=== PATIENT | female | born 1955 | race Caucasian/White ===

== ENCOUNTER → 2017-11-06 07:32 | Outpatient (CLI) | payer OTHER, SELFPAY ==
--- NOTE | 2017-11-06 06:58 | HPBI_ITS ---
MAMMOGRAPHY - BILATERAL SCREENING REASON FOR EXAM: Female, 61 years old. Routine annual screening examination. PERTINENT HISTORY: Non-contributory. TECHNIQUE: Digital bilateral breast jonathan (3D mammographic acquisition) in the CC and MLO projections. 2-D mediolateral oblique (MLO) and craniocaudad (CC) views of both breasts were obtained. CAD: Full Field Digital Mammography with Computer Added Detection was performed. COMPARISON: Comparison is made with prior study dated June 05, 2016 and April 24, 2015. FINDINGS: Breast Composition: The breasts are heterogeneously dense, which may obscure small masses. There are no dominant masses or suspicious calcifications. Once again, a tissue clip marker is seen in the upper slightly lateral aspect of the left breast. This is within the 1.2 cm x 1.1 cm nodular density. This is unchanged. Stable bilateral benign-appearing axillary lymph nodes. No other significant abnormalities are identified. There has been no significant change since the prior study. HPBI/SCREENING MAMM (CAD), BILAT IMPRESSION: Stable bilateral screening mammogram. Yearly follow-up mammogram recommended. (A) ASSESSMENT CATEGORY: BIRADS Category 2: Benign. A letter regarding these results will be sent to the patient by the facility within 30 days. Approximately 10% of breast cancers are not detected by mammography. A normal mammogram should not delay biopsy of a clinically suspicious abnormality. [id number] Electronically Signed: Donte Mott MD at 8:15 EST Tel [phone], Service support ,
== END ==
PROVIDERS: Family Provider Family Medicine; PCP Family Medicine; Visit Provider Family Medicine
DX: Z12.31 Encounter for screening mammogram for malignant neoplasm of breast (principal)
CPT/HCPCS: 77063; 77067

== ENCOUNTER → 2018-10-07 10:00 | Outpatient (CLI) | payer OTHER, SELFPAY ==
[2018-10-07 12:39] LABS: Absolute Lymphocyte Count 2.47 X10^3/ul (0.83-4.51); Absolute Neutrophil Count 2.5 X10^3/uL (2.0-7.7); Basophil# 0.03 X10^3/uL; Basophil% 0.5 % (0-1); Eosinophil# 0.22 X10^3/uL; Eosinophils% 3.9 % (0-5); Hematocrit 42.2 % (37-47); Hemoglobin 13.9 g/dl (12.0-15.0); Lymphocyte # 2.47 X10^3/ul (4.0); Lymphocyte % 43.8 % (19-41); Mean Corp Hgb Conc 32.9 g/gl (32-36); Mean Corpuscular Hgb 29.5 pg (27.0-32.0); Mean Corpuscular Volume 89.6 fL (81-99); Mean Platelet Vol. 10.8 fl (6.2-12.0); Monocyte% 7.1 % (0-10); Neutrophil % 44.3 % (47-70); Platelet Count 245 K/mm3 (150-450); RBC Distribution Width CV 12.7 % (11.6-14.6); RBC Distribution Width SD 40.9 fl (35.1-43.9); Red Blood Count 4.71 M/mm3 (4.2-5.4); White Blood Count 5.6 K/mm3 (4.4-11.0)
[2018-10-07 12:42] LABS: POSITIVE COUNT NO; POSITIVE DIFFERENTIAL NO; POSITIVE MORPHOLOGY NO
[2018-10-07 12:48] LABS: ALB/GLOB Ratio 0.9 RATIO (0.9-2.4); AST(SGOT) 13 U/L (15-37); Alanine Aminotransfer ALT/SGPT 29 U/L (13-56); Albumin, Serum 3.7 g/dL (3.2-5.0); Alkaline Phosphatase 103 U/L (45-117); Anion Gap 9 (5-15); BUN 28 mg/dL (7-18); BUN/Creat Ratio 28.6 RATIO (10-20); Calcium,Total 9.2 mg/dL (8.5-10.1); Chloride 105 mmol/L (98-107); Creatinine, Serum 0.98 mg/dL (0.55-1.02); EST Glomerular Filtration Rate 61 mL/min (>60); Est Glom Filt Rate - Afr Amer 73 mL/min (>60); Globulin 3.9 g/dL (2.2-4.2); Glucose 204 mg/dL (74-106); Protein, Total 7.6 g/dL (6.4-8.2); Sodium Level 140 mmol/L (136-145); T4 Free Direct 1.03 ng/dL (0.76-1.46)
--- OUTSIDE RECORDS SUMMARY | 2018-12-09 06:33 | XMS RPT_ITS ---
:1955 Author Organization [facility] Care Team Providers Name Role Phone James Rodriguez Attending Unavailable James Rodriguez Primary Care Unavailable Nurse, Surgery Attending Unavailable James Rodriguez Referring Unavailable James Rodriguez Attending Unavailable James Rodriguez Primary Care Unavailable PROBLEMS PROBLEMS No Problem Records FoundPROCEDURES PROCEDURES No Procedure Records FoundRESULTS RESULTS CBC W/DIFF, AUTOMATED Collected: 10/07/2018 Status: F Source: VIRI 10:02 AM [facility] REPOSITORY TYPE CODE TESTS RESULT OUT OF RANGE REFERENCE UNITS LAB L100.1000 4.4-11.0 K/mm3 Normal WBC 5.6 LAB L100.1200 4.2-5.4 M/mm3 Normal RBC 4.71 LAB L100.1300 12.0-15.0 g/dl Normal HGB 13.9 LAB L100.1400 37-47 % Normal HCT 42.2 LAB L100.1500 81-99 fL Normal MCV 89.6 LAB L100.1600 27.0-32.0 pg Normal MCH 29.5 LAB L100.1700 32-36 g/gl Normal MCHC 32.9 LAB L100.1810 11.6-14.6 % Normal RDW CV 12.7 LAB L100.1820 35.1-43.9 fl Normal RDW SD 40.9 LAB L100.1900 150-450 K/mm3 Normal PLT 245 LAB L100.2000 6.2-12.0 fl Normal MPV 10.8 LAB L100.2100 47-70 % Low NEUT% 44.3 LAB L100.2200 19-41 % High LY% 43.8 LAB L100.2300 0-10 % Normal MONO% 7.1 LAB L100.2400 0-5 % Normal EO% 3.9 LAB L100.2500 0-1 % Normal BASO% 0.5 LAB L100.2550 0.0-0.9 % Normal IM GRAN % 0.400 Result Comment: IG% - Immature Granulocytes (promyelocytes, myelocytes and metamyelocytes) > 1% indicates that a LEFT SHIFT is Present. LAB L100.2620 2.0-7.7 X10 3/uL Normal Absolute Neut 2.5 LAB L100.2720 0.83-4.51 X10 3/ul Normal Absolute Lymph 2.47 Performed By: #### L100.0100 #### [facility] [address] [place], [place], [address] COMPREHENSIVE METABOLIC Collected: 10/07/2018 Status: F Source: [facility] 10:02 AM [facility] REPOSITORY TYPE CODE TESTS RESULT OUT OF RANGE REFERENCE UNITS LAB L501.0100 74-106 mg/dL High GLU 204 Result Comment: Glucose result greater than or equal to 200 mg/dL suggests DIABETES MELLITUS per A.D.A. criteria. Please note revised GLUCOSE reference range effective 2017. LAB L501.1000 7-18 mg/dL High BUN 28 LAB L501.1100 0.55-1.02 mg/dL Normal CREAT,SERUM 0.98 Result Comment: The validity of the calculated GFR AND GFRAA in patients over 70 years has not been determined. Clinical correlation is essential. LAB L501.1110 >60 mL/min Normal EST GFR 61 Result Comment: Non- GFR Calc LAB L501.1115 >60 mL/min Normal EST GFR - AA 73 Result Comment: GFR Calc LAB L501.1300 10-20 RATIO High BUN/CRE 28.6 LAB L501.1500 6.4-8.2 g/dL T Normal PROT 7.6 LAB L501.1800 3.2-5.0 g/dL Normal ALB 3.7 LAB L501.1950 2.2-4.2 g/dL Normal GLOB 3.9 LAB L501.2000 0.9-2.4 RATIO Normal A/G 0.9 LAB L501.2200 8.5-10.1 mg/dL CA Normal 9.2 LAB L501.4100 15-37 U/L Low AST 13 LAB L501.4305 45-117 U/L Normal ALK P 103 LAB L501.4405 13-56 U/L Normal ALT 29 LAB L501.4600 0.20-1.00 mg/dL T Normal BILI 0.80 LAB L501.5300 136-145 mmol/L NA Normal 140 LAB L501.5600 3.5-5.1 mmol/L K Normal 4.0 LAB L501.5900 98-107 mmol/L CL Normal 105 LAB L501.6100 21.0-32.0 mmol/L Normal CO2 26.0 LAB L501.6200 5-15 Normal GAP 9 Performed By: #### L500.4050, L501.9520, L506.0400 #### [facility] [address], [place], [id number] THYROID STIM HORMONE Collected: 10/07/2018 Status: F Source: VIRI (TSH) 10:02 AM [facility] REPOSITORY TYPE CODE TESTS RESULT OUT OF RANGE REFERENCE UNITS LAB L501.9520 0.358-3.74 uIU/mL Normal TSH 1.40 Performed By: #### L500.4050, L501.9520, L506.0400 #### [facility] [address] [place], [place], [id number] T4 FREE DIRECT Collected: 10/07/2018 Status: F Source: VIRI 10:02 AM [facility] REPOSITORY TYPE CODE TESTS RESULT OUT OF RANGE REFERENCE UNITS LAB L506.0400 0.76-1.46 ng/dL Normal T4 FREE 1.03 DIRECT Performed By: #### L500.4050, L501.9520, L506.0400 #### [facility] [address] [place], [address] SCREENING MAMM (CAD), Observed: 11/06/2017 Status: F Source: VIRI BILAT 6:58 AM [facility] REPOSITORY [facility] Imaging Services [address] [place] [address] SCREENING MAMM (CAD), BILAT MR#: [id number] Acct: [id number] Name: ALIYA ELLIS Rep #: [id number] : 1955 F 61 From: Donte Mott MD PCP: James Rodriguez Status: REG CLI Study: SCREENING MAMM (CAD), BILAT Date of Exam: 11/06/17 Exam# [id number] Ordering Dr: James Rodriguez MD MAMMOGRAPHY - BILATERAL SCREENING REASON FOR EXAM: Female, 61 years old. Routine annual screening examination. PERTINENT HISTORY: Non-contributory. TECHNIQUE: Digital bilateral breast jonathan (3D mammographic acquisition) in the CC and MLO projections. 2-D mediolateral oblique (MLO) and craniocaudad (CC) views of both breasts were obtained. CAD: Full Field Digital Mammography with Computer Added Detection was performed. COMPARISON: Comparison is made with prior study dated June 05, 2016 and April 24, 2015. FINDINGS: Breast Composition: The breasts are heterogeneously dense, which may obscure small masses. There are no dominant masses or suspicious calcifications. Once again, a tissue clip marker is seen in the upper slightly lateral aspect of the left breast. This is within the 1.2 cm x 1.1 cm nodular density. This is unchanged. Stable bilateral benign-appearing axillary lymph nodes. No other significant abnormalities are identified. There has been no significant change since the prior study. HPBI/SCREENING MAMM (CAD), BILAT IMPRESSION: Stable bilateral screening mammogram. Yearly follow-up mammogram recommended. (A) ASSESSMENT CATEGORY: BIRADS Category 2: Benign. A letter regarding these results will be sent to the patient by the facility within 30 days. Approximately 10% of breast cancers are not detected by mammography. A normal mammogram should not delay biopsy of a clinically suspicious abnormality. [id number] Electronically Signed: Donte Mott MD at 8:15 EST Tel [phone], Service support , CC: James Rodriguez Turning Machine Set Up Operator: Signed ALLERGIES ALLERGIES No Allergies Records FoundENCOUNTERS ENCOUNTERS ADMIT/DISCHARGE ACCOUNT ADMITTING ENCOUNTER LOCATION SOURCE NUMBER CLASS 10/12/2018/ [id number] Ambulatory BMSBuilding:B [place] [facility] 0 [facility] Repository 10/07/2018 [id number] Ambulatory [place] [facility] ing:BFHLAB Repository 11/06/2017 [id number] [facility] [place] [facility] ing:BI Repository PAYERS PAYERS ENCOUNTER GUARANTOR PAYER SUBSCRIBER SOURCE 10/12/2018 DANAY [id number] Primary ALIYA [address] Insurance:MEDICAL FRANKSDOB: [facility] [id number] Hospital [address]Jeq: (330) Number: Repository [phone] () [id number] Date:[id number] [address] [place] [id number]: 10/12/2018 Secondary NOT GIVENUNK [place] Insurance:SELF PAY [facility] ([place], [place]) Number: Effective Repository Date:2018-10-12 10/07/2018 DANAY YANCEYS8628 Primary ALIYA [address] Insurance:MEDICAL FRANKSDOB: [facility] [id number] [address]Ocw: [phone]) Number: Repository [phone] () [id number] Date:[id number] [address] [place] [id number]: 10/07/2018 Secondary NOT GIVENUNK [place] Insurance:SELF PAY [facility] ([place], [place]) Number: Effective Repository Date:2018-10-07 11/06/2017 Danay Yanceys8628 Primary ALIYA [address] Insurance:MEDICAL FRANKWVOB: [facility] [id number] Hospital [address]Vym: (330) Number: Repository [phone] () [id number] Date:[id number], [place] [address]RI: 11/06/2017 Secondary NOT GIVENUNK [place] Insurance:SELF PAY [facility] ([place], [place]) Number: Effective Repository Date:2017-10-14
== END ==
PROVIDERS: Family Provider Family Medicine; PCP Family Medicine; Visit Provider Family Medicine
DX: I10 Essential (primary) hypertension (principal); E78.5 Hyperlipidemia, unspecified; E11.9 Type 2 diabetes mellitus without complications
CPT/HCPCS: 36415; 80053; 84439; 84443; 85025

== ENCOUNTER 2018-11-05 05:49 | Day surgery (SDC) | payer OTHER, SELFPAY ==
[2018-11-05 06:16] VITALS: BP 127/89; PULSE 100; RESP 16; TEMP 36.6; O2SAT 100; BMI 27.0
--- NOTE | 2018-11-05 06:50 | PCM.HP.STD ---
Problem List (1) Screen for colon cancer Status: Acute History of Present Illness Date of Admission: 11/05/18 The patient is a 62 year old F who presents for screening colonoscopy. She has occasional constipation she has not noticed any blood she is not complaining of any abdominal pain. Past Medical History Past Medical History (Chronic Problems): Chronic Problems HTN (hypertension) (Chronic) HLD (hyperlipidemia) (Chronic) Type II diabetes mellitus (Chronic) Allergies No Known Allergies Allergy (Verified 11/03/18 10:42) Home Medications: Ambulatory Orders Medication Instructions Recorded Allopurinol 100 mg PO QODAY 11/03/18 Aspirin E.C. [Ecotrin] 81 mg PO DAILY@0800 11/03/18 Glimepiride [Amaryl] 4 mg PO BID 11/03/18 Losartan/Hydrochlorothiazide 1 each PO DAILY 11/03/18 [Losartan-Hctz 100-25 mg Tab] Multivitamin [Multiple Vitamins] 1 each PO DAILY 11/03/18 Potassium Chloride [K-Dur] 10 meq PO BID 11/03/18 Simvastatin [Zocor] 20 mg PO DAILY 11/03/18 Surgical History: - - Lithotripsy, she has had her tubes tied Smoking Status: Never smoker Tobacco Use: Non-smoker - *Family History Maternal History Items: No pertinent history Review of Systems Constitutional: Denies: Chills, Fever, Weight Change Cardiovascular: Denies: Chest Pain, Chest Pressure, Chest Tightness, Palpitations Respiratory: Denies: Cough, Hemoptysis, Shortness of breath at rest, Shortness of breath upon exertion, Wheezing Gastrointestinal: Denies: Abdominal Pain, Constipation, Diarrhea, Hematemesis, Nausea, Melena, Vomiting VTE Information - Inpt Only VTE Present on Admission: No VTE Mechan Device Prophylaxis: None VTE Pharm Prophylaxis ordered?: No Reason prophylaxis not ordered:: Treatment Not Indicated Patient Problems: Active and Suspected Problems Screen for colon cancer (Acute) - Physical Exam General: Alert, Oriented x3 Neck: Supple, No JVD Lungs: Clear to auscultation Cardiovascular: Regular rate, Regular Rhythm, No murmurs Abdomen: Bowel Sounds Present, Soft, Non Tender, Non-Distended Vital Signs Temp Pulse Resp BP Pulse Ox 97.8 F 100 16 127/89 H 100 11/05/18 06:16 11/05/18 06:16 11/05/18 06:16 11/05/18 06:16 11/05/18 06:16 Oxygen Delivery Method Room Air Weight: 162 lb 7.691 oz Body Mass Index (BMI) 27.0 Assessment/Plan All Active Problems Screen for colon cancer (Acute) Plan is to perform a colonoscopy. Risk and benefits were reviewed with the patient. These were include bleeding possible injury to the colon which could require subsequent surgeries to repair. She agrees to proceed.
[2018-11-05 07:06] LABS: Bedside Glucose 231 mg/dL (70-110)
--- NOTE | 2018-11-05 07:06 | OP.ENDO_ITS ---
11/05/2018 James Rodriguez Re : Colonoscopy procedure for Macarena Nunez Dear Jennifer This procedure was performed on October. My impressions and recommendations are as follows: Impressions : - The procedure was aborted due to inadequate bowel prep. - Stool in the entire examined colon. - No specimens collected. Recommendations : - Discharge patient to home. - Resume previous diet. - Continue present medications. - Repeat colonoscopy at appointment to be scheduled because the bowel preparation was poor. - Return to my office in 1 week. My findings are described in the full procedure note, which is enclosed. If I can be of further assistance, please feel free to contact me at Doctor phone number(s): , Fax: [phone], Work: . Sincerely, MD Papi Mathews MD 11/05/2018 7:05:09 AM This report has been signed electronically.
[2018-11-05 07:10] VITALS: BP 127/89; BP 97/61; PULSE 73; RESP 16; TEMP 36.4; O2SAT 97
[2018-11-05 07:15] VITALS: BP 101/63; BP 110/68; BP 127/89; PULSE 69; PULSE 72; RESP 16; O2SAT 97; O2SAT 98
[2018-11-05 07:25] VITALS: BP 113/70; BP 127/89; PULSE 74; RESP 16; TEMP 36.4; O2SAT 97
[2018-11-05 07:59] VITALS: BP 127/89
== END 2018-11-05 08:00 | disposition home or self-care (01) ==
LOC: EN 05:50 → AC 05:52
PROVIDERS: Family Provider Family Medicine; PCP Family Medicine; Referring Provider Surgery; Visit Provider Surgery
PROC: 0DJD8ZZ Inspection of Lower Intestinal Tract, Via Natural or Artificial Opening Endoscopic (ICD-10-PCS; CPT 45378; principal; 2018-11-05 06:55)
DX: Z12.11 Encounter for screening for malignant neoplasm of colon (principal); I10 Essential (primary) hypertension; E78.5 Hyperlipidemia, unspecified; E11.9 Type 2 diabetes mellitus without complications; Z79.84 Long term (current) use of oral hypoglycemic drugs; Z79.82 Long term (current) use of aspirin; Z79.899 Other long term (current) drug therapy; Z87.442 Personal history of urinary calculi
CPT/HCPCS: 45378; 82962; J7120

== ENCOUNTER 2018-12-30 05:51 | Day surgery (SDC) | payer OTHER, SELFPAY ==
[2018-12-01 07:27] VITALS: BMI 27.0
[2018-12-30] VITALS (9 sets, daily range): BP systolic 92–137; BP diastolic 61–82; PULSE 71–88; RESP 16–18; TEMP 36.4–36.8; O2SAT 92–100; BMI 27.6
--- NOTE | 2018-12-30 06:21 | SUR.PREOP ---
PT. PRESENTS FOR COLONOSCOPY. SHE STATES HER STOOLS ARE NOT COMPLETELY LIQUID AND THEY ARE BROWN IN COLOR. SHE DID NOT FINISH 32OZ OF PREP THAT SHE WAS TO DRINK. RN PAGED DR. CHING AND NOTIFIED HIM OF THIS. NEW ORDER RECEIVED FOR MG. [facility] AND PT. WILL BE MOVED DOWN ON SCHEDULE THIS MORNING. PT. AGREEABLE TO THIS.
[2018-12-30] MEDS: Magnesium Citrate 300 ML PO (06:30)
[2018-12-30 10:00] LABS: Bedside Glucose 130 mg/dL (70-110)
[2018-12-30] MEDS: Fleet Enema 1 ML RECTAL ×2 (10:28)
--- NOTE | 2018-12-30 11:33 | OP.ENDO_ITS ---
12/30/2018 James Rodriguez Re : Colonoscopy procedure for Macarena Nunez Dear Jennifer This procedure was performed on Sunday, December 30, 2018. My impressions and recommendations are as follows: Impressions : - Non-bleeding internal hemorrhoids. No specimens collected. - The examination was otherwise normal. Recommendations : - Discharge patient to home. - Resume previous diet. - Continue present medications. - Repeat colonoscopy in 10 years for screening purposes. - Return to primary care physician at appointment to be scheduled. My findings are described in the full procedure note, which is enclosed. If I can be of further assistance, please feel free to contact me at Doctor phone number(s): , Fax: [phone], Work: . Sincerely, MD Papi Mathews MD 12/30/2018 11:32:39 AM This report has been signed electronically.
== END 2018-12-30 13:04 | disposition home or self-care (01) ==
LOC: EN 05:51 → AC 05:52
PROVIDERS: Family Provider Family Medicine; PCP Family Medicine; Referring Provider Family Medicine; Visit Provider Surgery
PROC: 0DJD8ZZ Inspection of Lower Intestinal Tract, Via Natural or Artificial Opening Endoscopic (ICD-10-PCS; CPT 45378; principal; 2018-12-30 06:55)
DX: Z12.11 Encounter for screening for malignant neoplasm of colon (principal); K64.8 Other hemorrhoids; I10 Essential (primary) hypertension; E78.5 Hyperlipidemia, unspecified; E11.9 Type 2 diabetes mellitus without complications; Z87.442 Personal history of urinary calculi; Z79.84 Long term (current) use of oral hypoglycemic drugs; Z79.82 Long term (current) use of aspirin; Z79.899 Other long term (current) drug therapy
CPT/HCPCS: 45378; 82962; J7120; J1610

== ENCOUNTER → 2019-02-03 | Outpatient (CLI) | payer OTHER, SELFPAY ==
[2018-12-30 06:32] VITALS: BMI 27.6
--- NOTE | 2019-02-03 06:58 | BI_ITS ---
MAMMOGRAPHY - BILATERAL SCREENING REASON FOR EXAM: Female, 63 years old. Routine annual screening examination. PERTINENT HISTORY: History of prior bilateral breast aspiration and left ultrasound-guided biopsy. TECHNIQUE: Digital bilateral breast jonathan (3D mammographic acquisition) in the CC and MLO projections. 2-D mediolateral oblique (MLO) and craniocaudad (CC) views of both breasts were obtained. CAD: Full Field Digital Mammography with Computer Added Detection was performed. COMPARISON: Comparison is made with prior study dated November 06, 2017 and June 05, 2016. FINDINGS: Breast Composition: The breasts are heterogeneously dense, which may obscure small masses. Once again, a tissue clip marker is seen in the nodular density in the upper slightly lateral aspect of the left breast. This measures 1.3 cm x 0.9 cm. There is a 8.5 mm x 1.1 cm nodule in the slightly upper mid right breast. Correlation with ultrasound is recommended. Stable bilateral benign appearing axillary lymph nodes. No other significant abnormalities are identified. BI/SCREENING MAMM (CAD), BILAT IMPRESSION: There is a new 1.1 cm x 8.5 mm nodule in the slightly upper mid right breast. Correlation with ultrasound is recommended. ASSESSMENT CATEGORY: BIRADS Category 0: Incomplete. Need additional imaging evaluation. A letter regarding these results will be sent to the patient by the facility within 30 days. Approximately 10% of breast cancers are not detected by mammography. A normal mammogram should not delay biopsy of a clinically suspicious abnormality. [id number] Electronically Signed: Donte Mott, at 8:43 EDT , Service support ,
== END | disposition home or self-care (01) ==
LOC: OPBI 07:25
PROVIDERS: Family Provider Family Medicine; PCP Family Medicine; Referring Provider Family Medicine; Visit Provider Family Medicine
DX: Z12.31 Encounter for screening mammogram for malignant neoplasm of breast (principal)
CPT/HCPCS: 77063; 77067

== ENCOUNTER → 2019-02-05 | Outpatient (CLI) | payer OTHER, SELFPAY ==
[2018-12-30 06:32] VITALS: BMI 27.6
--- NOTE | 2019-02-05 13:34 | US_ITS ---
STUDY: ULTRASOUND BREAST - RIGHT REASON FOR EXAM: Female, 63 years old. Abnormal screening mammogram. TECHNIQUE: Axial and longitudinal images of the RIGHT breast were performed with a high resolution ultrasound transducer. COMPARISON: Comparison is made with prior mammogram dated February 03, 2019. FINDINGS: RIGHT Breast: The mammographic abnormality corresponds to an 8 mm x 9 mm x 7 mm well-defined hypoechoic nodule at the 12:00 position of the breast and 1 cm from the nipple. A biopsy is recommended for further evaluation. US/Breast Limited Unilateral IMPRESSION: The mammographic abnormality corresponds to a 8 mm x 9 mm x 7 mm hypoechoic solid nodule at the 12:00 position of the breast at 1 cm from the nipple. A biopsy is recommended for further evaluation. ASSESSMENT CATEGORY: BIRADS Category 4: Suspicious - Biopsy Should Be Considered. A letter regarding these results will be sent to the patient by the facility within 30 days. Electronically Signed: Donte Mott, at 14:44 EDT , Service support ,
== END | disposition home or self-care (01) ==
PROVIDERS: Family Provider Family Medicine; PCP Family Medicine; Referring Provider Surgery; Visit Provider Surgery
DX: N63.10 Unspecified lump in the right breast, unspecified quadrant (principal)
CPT/HCPCS: 76642

== ENCOUNTER → 2019-02-23 | Outpatient (CLI) | payer OTHER, SELFPAY ==
--- NOTE | 2019-02-23 13:00 | BRBX_PTH ---
PATIENT: ALIYA ELLIS [facility] U#:[id number] AGE/SX: 63/F ROOM: RE02/23/[address]: Dr. Ppai Sood MD : 1955 BED: DIS: 02/23/2019 SPEC #: [id number] RECD: 02/23/19 16:27 STATUS: RAVINDRA GALDINO #: [id number] JAYSON: 02/23/19 13:[address]: Papi Sood DEPT: SURGICAL PATHOLOGY RECD BY: Denis Dinh ENTERED: 02/24/19 11:21 SP TYPE: BREAST BX OTHR DR: Dr. James Rodriguez MD Tissues: Right breast, NOS Procedures: Surgery Specimen Level IV HEADER OPERATION: Right breast mammotome biopsy PRE-OP DIAGNOSIS: Right breast mass TISSUE SUBMITTED: Right breast tissue ISCHEMIC TIME: 1 minute FIXATION TIME: 30.5 hours MICROSCOPIC DIAGNOSIS Right breast, mammotome core biopsy: Focal dense fibrosis and dystrophic calcification. Minimal fibrocystic changes. Focal periductal chronic inflammation. Negative for atypia or malignancy. JANEL:cory 02/25/19 COMMENT Correlation with clinical, radiologic findings and appropriate follow up are necessary. MICROSCOPIC DESCRIPTION Slides are reviewed. GROSS DESCRIPTION Received in fixative is one container labeled with the patient's name and designated right breast biopsy. The specimen consists of multiple elongated fragments of interiano-yellow fibroadipose tissue that in aggregate measure 2 x 1 x 0.1 cm. The entire specimen is submitted in one cassette. / JANEL:cory 02/24/19 TC:5 CPT: 39372
[2019-02-23 13:08] VITALS: BMI 27.6
== END | disposition home or self-care (01) ==
LOC: LABSPEC 17:00
PROVIDERS: Family Provider Family Medicine; PCP Family Medicine; Referring Provider Surgery; Visit Provider Surgery
DX: N63.10 Unspecified lump in the right breast, unspecified quadrant (principal)
CPT/HCPCS: 88305

== ENCOUNTER → 2019-06-04 | Outpatient (CLI) | payer OTHER, SELFPAY ==
[2019-02-23 13:08] VITALS: BMI 27.6
[2019-06-04 14:07] LABS: Absolute Lymphocyte Count 2.63 X10^3/uL (0.83-4.51); Absolute Neutrophil Count 3.3 X10^3/uL (2.0-7.7); Basophil# 0.05 X10^3/uL; Basophil% 0.7 % (0-1); Hematocrit 40.8 % (37-47); Hemoglobin 13.3 g/dL (12.0-15.0); Lymphocyte # 2.63 X10^3/ul (4.0); Lymphocyte % 39.4 % (19-41); Mean Corp Hgb Conc 32.6 g/dL (32-36); Mean Corpuscular Volume 88.9 fL (81-99); Mean Platelet Vol. 10.6 fl (6.2-12.0); Monocyte# 0.46 X10^3/uL; Monocyte% 6.9 % (0-10); NRBC Flagged by Analyzer 0 % (0-5); Neutrophil # 3.33 X10^3/uL (2.7-7.7); Neutrophil % 49.9 % (47-70); Platelet Count 227 K/mm3 (150-450); RBC Distribution Width CV 12.1 % (11.6-14.6); RBC Distribution Width SD 38.7 fl (35.1-43.9); Red Blood Count 4.59 M/mm3 (4.2-5.4); White Blood Count 6.7 K/mm3 (4.4-11.0)
[2019-06-04 14:18] LABS: AST(SGOT) 8 U/L (15-37); Alanine Aminotransfer ALT/SGPT 24 U/L (13-56); Albumin, Serum 3.8 g/dL (3.2-5.0); Alkaline Phosphatase 105 U/L (45-117); Anion Gap 6 (5-15); BUN 25 mg/dL (7-18); BUN/Creat Ratio 23.4 RATIO (10-20); Calcium,Total 9.3 mg/dL (8.5-10.1); Chloride 106 mmol/L (98-107); Creatinine, Serum 1.07 mg/dL (0.55-1.02); EST Glomerular Filtration Rate 55 mL/min (>60); Est Glom Filt Rate - Afr Amer 66 mL/min (>60); Globulin 3.8 g/dL (2.2-4.2); Glucose 156 mg/dL (74-106); Potassium 4.1 mmol/L (3.5-5.1); Protein, Total 7.6 g/dL (6.4-8.2); Sodium Level 138 mmol/L (136-145)
[2019-06-05 06:07] LABS: HEPATITIS B SURFACE AG Negative (Negative); Hepatitis A AB, Total Negative (Negative); Hepatitis A IgM Antibody Negative (Negative); Hepatitis B Core AB IgM Negative (Negative); Hepatitis B Core Ab Total Negative (Negative); Hepatitis C Ab <0.1 s/co ratio (0.0-0.9)
[2019-06-05 10:18] LABS: Hep B Surface Antibodies Non Reactive (.)
== END | disposition home or self-care (01) ==
LOC: MTLAB 13:08
PROVIDERS: Family Provider Family Medicine; PCP Family Medicine; Referring Provider Physician Assistant; Visit Provider Physician Assistant
DX: L66.1 Lichen planopilaris (principal)
CPT/HCPCS: 36415; 80053; 85025; 86704; 86705; 86706; 86708; 86709; 86803; 87340

== ENCOUNTER → 2019-11-04 | Outpatient (CLI) | payer OTHER, SELFPAY ==
[2019-02-23 13:08] VITALS: BMI 27.6
--- NOTE | 2019-11-04 08:25 | BD_ITS ---
STUDY: DUAL ENERGY X-RAY ABSORPTIOMETRY / DXA REASON FOR EXAM: Female, 63 years old. Age of logan- 50. Pat is 165.3# and 64.5 and quot; a loss of .5 and quot; per patient. Type II diabetic and takes Glimepiride. Takes a daily Multi-vit. Does not exercise. TECHNIQUE: Bone Mineral Density (BMD) measurements of lumbar spine and bilateral hips were obtained. COMPARISON: None. FINDINGS: Lumbar Spine (L1-L4): g/cm2 (0.992) / T-score (-1.4) / Z-score (0.2) Findings are suggestive of osteopenia with a low fracture risk. Left Femur Total: g/cm2 (1.103) / T-score (0.8) / Z-score (2.0) Left Femoral Neck: g/cm2 (1.058) / T-score (0.1) / Z-score (1.6) Right Femur Total: g/cm2 (0.993) / T-score (-0.1) / Z-score (1.1) Right Femoral Neck: g/cm2 (0.931) / T-score (-0.8) / Z-score (0.7) BD/Dexa Bone Density Study IMPRESSION: The patient is considered osteopenic as outlined below according to World [place] Organization (WHO) criteria with a low fracture risk. Reference Information: The T-score is the number of standard deviations above or below the standard which is normal for young adults at their peak bone mineral density. The World Health Organization (WHO) interprets the T-scores as follows: Above -1 Normal bone density Between -1 and -2.5 Osteopenia Equal to / or below -2.5 Osteoporosis As a practical clinical guideline, osteopenia may be graded as follows: Mild -1 through -1.5 Moderate -1.6 through -2.0 Severe -2.1 through -2.4 The Z-score is the number of standard deviations above or below age-matched controls. A Z-score of less than -1.5 would be considered abnormal. References: 1. NIH Osteoporosis and Related Bone Diseases http://www.osteo.org 2. International Society for Clinical Densitometry http://www.iscd.org 3. National Osteoporosis Foundation http://www.nof.org Electronically Signed: Donte Mott, at 10:28 EST , Service support ,
== END | disposition home or self-care (01) ==
LOC: OPBD 08:20
PROVIDERS: PCP Family Medicine; Referring Provider Family Medicine; Visit Provider Family Medicine
DX: Z13.820 Encounter for screening for osteoporosis (principal)
CPT/HCPCS: 77080

== ENCOUNTER → 2020-03-31 | Outpatient (CLI) | payer MEDICARE, OTHER, SELFPAY ==
[2019-02-23 13:08] VITALS: BMI 27.6
[2020-03-31 12:27] LABS: Absolute Lymphocyte Count 2.48 X10^3/uL (0.83-4.51); Absolute Neutrophil Count 3.2 X10^3/uL (2.0-7.7); Basophil# 0.05 X10^3/uL; Basophil% 0.8 % (0-1); Eosinophil# 0.29 X10^3/uL; Eosinophils% 4.5 % (0-5); Hematocrit 40.8 % (37-47); Hemoglobin 13.1 g/dL (12.0-15.0); Lymphocyte # 2.48 X10^3/ul (4.0); Lymphocyte % 38.4 % (19-41); Mean Corp Hgb Conc 32.1 g/dL (32-36); Mean Corpuscular Hgb 29.4 pg (27.0-32.0); Mean Corpuscular Volume 91.5 fL (81-99); Mean Platelet Vol. 10.7 fl (6.2-12.0); Monocyte# 0.44 X10^3/uL; Monocyte% 6.8 % (0-10); NRBC Flagged by Analyzer 0 % (0-5); Neutrophil # 3.19 X10^3/uL (2.7-7.7); Neutrophil % 49.3 % (47-70); Platelet Count 234 K/mm3 (150-450); RBC Distribution Width CV 12.7 % (11.6-14.6); RBC Distribution Width SD 42.3 fl (35.1-43.9); Red Blood Count 4.46 M/mm3 (4.2-5.4); White Blood Count 6.5 K/mm3 (4.4-11.0)
[2020-03-31 12:40] LABS: Anion Gap 4 (5-15); BUN 33 mg/dL (7-18); BUN/Creat Ratio 28.7 RATIO (10-20); Calcium,Total 9.1 mg/dL (8.5-10.1); Chloride 105 mmol/L (98-107); Creatinine, Serum 1.15 mg/dL (0.55-1.02); EST Glomerular Filtration Rate 50 mL/min (>60); Est Glom Filt Rate - Afr Amer 61 mL/min (>60); Glucose 241 mg/dL (74-106); Potassium 4.2 mmol/L (3.5-5.1); Sodium Level 137 mmol/L (136-145)
== END | disposition home or self-care (01) ==
LOC: BFHLAB 10:28
PROVIDERS: PCP Family Medicine; Visit Provider Family Medicine
DX: I10 Essential (primary) hypertension (principal); E11.9 Type 2 diabetes mellitus without complications
CPT/HCPCS: 36415; 80048; 85025

== ENCOUNTER → 2020-07-24 07:33 | Outpatient (CLI) | payer MEDICARE, OTHER, SELFPAY ==
[2019-02-23 13:08] VITALS: BMI 27.6
--- NOTE | 2020-07-24 07:35 | BI_ITS ---
MAMMOGRAPHY - BILATERAL SCREENING REASON FOR EXAM: Female, 64 years old. Routine annual screening examination. PERTINENT HISTORY: Non-contributory. TECHNIQUE: Digital bilateral breast boy (3D mammographic acquisition) in the CC and MLO projections. 2-D mediolateral oblique (MLO) and craniocaudad (CC) views of both breasts were obtained. CAD: Full Field Digital Mammography with Computer Added Detection was performed. COMPARISON: Comparison is made with prior examination dated 02/03/2019 and 11/06/2017. FINDINGS: Breast Composition: The breasts are heterogeneously dense, which may obscure small masses. There are no dominant masses or suspicious calcifications. Once again, a tissue clip marker is seen in the 1 cm nodular density in the slightly lateral central portion of the left breast. A tissue clip marker is also seen within the small residual nodule in the slightly upper central portion of the right breast. The nodular density previously mentioned measuring 1.1 cm. No other significant abnormalities are identified. There has been no significant change since the prior study. BI/SCREEN MAMM (CAD) W/BOY BILAT IMPRESSION: Stable bilateral screening mammogram. Yearly follow-up mammogram recommended. (A) ASSESSMENT CATEGORY: BIRADS Category 2: Benign. A letter regarding these results will be sent to the patient by the facility within 30 days. Approximately 10% of breast cancers are not detected by mammography. A normal mammogram should not delay biopsy of a clinically suspicious abnormality. [id number] Electronically Signed: Donte Mott, at 8:48 EST , Service support ,
== END ==
PROVIDERS: PCP Family Medicine; Referring Provider Surgery; Visit Provider Surgery
DX: Z12.31 Encounter for screening mammogram for malignant neoplasm of breast (principal)
CPT/HCPCS: 77063; 77067

== ENCOUNTER 2020-11-21 16:13 | Outpatient (RCR) | payer MEDICARE, OTHER, SELFPAY ==
[2019-02-23 13:08] VITALS: BMI 27.6
[2020-11-21] MEDS: COVID-19 VACC, MRNA(PFIZER)/PF 30 MCG/0.3 ML SYRINGE IM (09:28)
[2020-12-19] MEDS: COVID-19 VACC, MRNA(PFIZER)/PF 30 MCG/0.3 ML SYRINGE IM (19:06)
== END 2021-02-20 23:59 ==
LOC: IMMUN 16:13
PROVIDERS: PCP Family Medicine; Visit Provider Family Medicine
DX: Z23 Encounter for immunization (principal)
CPT/HCPCS: 0001A; 0002A; 91300

== ENCOUNTER → 2021-09-03 10:51 | Outpatient (CLI) | payer MEDICARE, OTHER, SELFPAY ==
--- NOTE | 2021-09-03 10:53 | BI_ITS ---
MAMMOGRAPHY - BILATERAL SCREENING REASON FOR EXAM: Female, 65 years old. Routine annual screening examination. PERTINENT HISTORY: Non-contributory. TECHNIQUE: Digital bilateral breast boy (3D mammographic acquisition) in the CC and MLO projections. 2-D mediolateral oblique (MLO) and craniocaudad (CC) views of both breasts were obtained. CAD: Full Field Digital Mammography with Computer Added Detection was performed. COMPARISON: Comparison is made with prior study dated 07/24/2020 and 02/03/2019. FINDINGS: Breast Composition: The breasts are heterogeneously dense, which may obscure small masses. There are no dominant masses or suspicious calcifications. Once again, a tissue clip marker is seen in the anterior upper lateral aspect of the left breast within a small residual nodule. The nodule measures 1 cm. A tissue clip marker is also seen within the central mid depth of the right breast. No other significant abnormalities are identified. There has been no significant change since the prior study. BI/SCRN MAMM (CAD)W/BOY BILAT IMPRESSION: Stable bilateral screening mammogram. Yearly follow-up mammogram recommended. (A) ASSESSMENT CATEGORY: BIRADS Category 2: Benign. A letter regarding these results will be sent to the patient by the facility within 30 days. Approximately 10% of breast cancers are not detected by mammography. A normal mammogram should not delay biopsy of a clinically suspicious abnormality. [id number] Electronically Signed: Donte Mott MD at 12:21 EST , Service support ,
== END ==
PROVIDERS: PCP Family Medicine; Referring Provider Family Medicine; Visit Provider Family Medicine
DX: Z12.31 Encounter for screening mammogram for malignant neoplasm of breast (principal)
CPT/HCPCS: 77063; 77067

== ENCOUNTER → 2023-01-17 | Outpatient (CLI) | payer MEDICARE, OTHER, SELFPAY ==
--- NOTE | 2023-01-17 09:30 | BI_ITS ---
MAMMOGRAPHY - BILATERAL SCREENING REASON FOR EXAM: Female, 67 years old. Routine annual screening examination. PERTINENT HISTORY: Non-contributory. Prior bilateral breast biopsies. TECHNIQUE: Digital bilateral breast boy (3D mammographic acquisition) in the CC and MLO projections. 2-D mediolateral oblique (MLO) and craniocaudad (CC) views of both breasts were obtained. CAD: Full Field Digital Mammography with Computer Added Detection was performed. COMPARISON: Comparison is made with prior examination dated September 03, 2021 and July 24, 2020. FINDINGS: Breast Composition: The breasts are heterogeneously dense, which may obscure small masses. There are no dominant masses or suspicious calcifications. A tissue clip marker is once again seen in the anterior upper lateral aspect of the left breast. The nodule measures 9.5 mm. A tissue clip marker is also seen within the mid central depth of the right breast. Stable bilateral axillary lymph nodes. No other significant abnormalities are identified. There has been no significant change since the prior study. BI/SCRN MAMM (CAD)W/BOY BILAT IMPRESSION: Stable bilateral screening mammogram. Yearly follow-up mammogram recommended. (A) ASSESSMENT CATEGORY: BIRADS Category 2: Benign. A letter regarding these results will be sent to the patient by the facility within 30 days. Approximately 10% of breast cancers are not detected by mammography. A normal mammogram should not delay biopsy of a clinically suspicious abnormality. [id number] Electronically Signed: Donte Mott MD at 10:23 EDT ,
== END | disposition home or self-care (01) ==
LOC: OPBI 09:29
PROVIDERS: PCP Family Medicine; Referring Provider Family Medicine; Visit Provider Family Medicine
DX: Z12.31 Encounter for screening mammogram for malignant neoplasm of breast (principal)
CPT/HCPCS: 77063; 77067

== ENCOUNTER → 2023-02-06 | Outpatient (CLI) | payer MEDICARE, OTHER, SELFPAY ==
[2023-02-06 12:20] LABS: Absolute Lymphocyte Count 2.13 X10^3/uL (0.83-4.51); Absolute Neutrophil Count 2.7 X10^3/uL (2.0-7.7); Basophil# 0.05 X10^3/uL; Basophil% 0.9 % (0-1); Eosinophil# 0.22 X10^3/uL; Eosinophils% 3.9 % (0-5); Hematocrit 41.8 % (37-47); Hemoglobin 13.5 g/dL (12.0-15.0); Lymphocyte # 2.13 X10^3/ul (0.83-4.51); Lymphocyte % 38.1 % (19-41); Mean Corp Hgb Conc 32.3 g/dL (32-36); Mean Corpuscular Hgb 29.3 pg (27.0-32.0); Mean Corpuscular Volume 90.9 fL (81-99); Mean Platelet Vol. 10.5 fl (6.2-12.0); Monocyte# 0.43 X10^3/uL; Monocyte% 7.7 % (0-10); NRBC Flagged by Analyzer 0 % (0-5); Neutrophil # 2.74 X10^3/uL (2.7-7.7); Platelet Count 221 K/mm3 (150-450); RBC Distribution Width CV 12.4 % (11.6-14.6); RBC Distribution Width SD 41.1 fl (35.1-43.9); White Blood Count 5.6 K/mm3 (4.4-11.0)
[2023-02-06 12:34] LABS: ALB/GLOB Ratio 0.9 RATIO (0.9-2.4); AST(SGOT) 21 U/L (15-37); Alanine Aminotransfer ALT/SGPT 31 U/L (13-56); Albumin, Serum 3.6 g/dL (3.2-5.0); Alkaline Phosphatase 96 U/L (45-117); Anion Gap 6 (5-15); BUN 30 mg/dL (7-18); BUN/Creat Ratio 25.9 RATIO (10-20); Calcium,Total 9.6 mg/dL (8.5-10.1); Chloride 105 mmol/L (98-107); Cholesterol 159 mg/dL (200); Creatinine, Serum 1.16 mg/dL (0.55-1.02); EST Glomerular Filtration Rate 49 mL/min (>60); Est Glom Filt Rate - Afr Amer 60 mL/min (>60); Globulin 3.9 g/dL (2.2-4.2); Glucose 232 mg/dL (74-106); High Density Lipoprotein 48 mg/dL; Potassium 4.1 mmol/L (3.5-5.1); Protein, Total 7.5 g/dL (6.4-8.2); Sodium Level 138 mmol/L (136-145); Triglycerides 228 mg/dL; Very Low Density Lipoprotein 46 mg/dL (5-40)
[2023-02-06 18:28] LABS: Microalbumin,Random Urine 77.4 mg/L (NO RANGE EST.); Microalbumin:Creatinine Ratio 57.3 mg/g CRE (<30 mg/g CRE)
== END | disposition home or self-care (01) ==
LOC: BFHLAB 09:34
PROVIDERS: PCP Family Medicine; Referring Provider Family Medicine; Visit Provider Family Medicine
DX: E78.5 Hyperlipidemia, unspecified (principal); E11.9 Type 2 diabetes mellitus without complications; I10 Essential (primary) hypertension; Z51.81 Encounter for therapeutic drug level monitoring
CPT/HCPCS: 36415; 80053; 80061; 82043; 82570; 85025

== ENCOUNTER 2023-06-13 19:44 | Emergency (ER) | payer MEDICARE, OTHER, SELFPAY ==
[2023-06-13 19:46] VITALS: BP 170/87; PULSE 87; RESP 16; TEMP 36.1; O2SAT 100; BMI 26.9
--- NOTE | 2023-06-13 20:07 | CT_ITS ---
STUDY: CT ABDOMEN AND PELVIS WITHOUT CONTRAST REASON FOR EXAM: Female, 67 years old. Left flank pain RADIATION DOSAGE (If Supplied By Facility): CTDIvol = ( 7.21 ) mGy, DLP = ( 362.21 ) mGycm TECHNIQUE: Transaxial images were obtained from the dome of the diaphragm to the symphysis pubis without oral contrast, and without intravenous contrast. Sagittal and coronal images were reconstructed. Individualized dose optimization techniques were used for this CT. COMPARISON: None. FINDINGS: The visualized lung bases are unremarkable. The visualized portions of the heart are within normal limits. Normal liver. Cholelithiasis. No significant dilatation of the extrahepatic biliary system. Normal spleen. Normal pancreas. Normal bilateral adrenal glands. Normal right kidney. Hydronephrosis of the left kidney with staghorn calculi in the renal pelvis. Small hiatal hernia. Normal small intestine. Normal colon. The appendix is visualized and appears normal. Calcified abdominal aorta. Normal inferior vena cava. Normal retroperitoneum. Normal urinary bladder. Possible left ovarian cystic nodule estimated 1.6 cm. Small fatty umbilical hernia. Normal osseous structures. CT/Abdomen/Pelvis without Cont IMPRESSION: Left hydronephrosis with calculi within the renal pelvis. Cholelithiasis. Small fatty umbilical hernia. Possible left ovarian cystic nodule. Electronically Signed: Jovan Saxena DO at 21:37 EDT Reading Location ID and State: [facility] / [place] Tel [phone], Service support ,
--- NOTE | 2023-06-13 20:09 | EX.ED.DYSGE1 ---
HPI History of Present Illness Chief Complaint: Flank Pain Informant: patient Onset/Context/Timing Onset: Days Context: Gradual Onset Timing: Waxes and wanes Current Severity: Moderate Maximum Severity: Moderate Narrative Narrative: Secondary to left CVA tenderness and pain. Patient states last Friday morning she got up and felt some pain in her left back. She been sitting on some bleachers at a football game over the weekend and thought she just pulled something. She been taking Aleve intermittently throughout the week. There is only one occasion where she thought the pain may have wrapped around her abdomen, otherwise it has been staying in the left CVA region. No fever or chills. She states she might be urinating slightly more frequently than normal, but has no pain or hematuria. She does have a remote history of a kidney stone that did require lithotripsy. [facility] Medical History HLD (hyperlipidemia) HTN (hypertension) Type II diabetes mellitus Home Medications allopurinol 100 mg tablet 100 mg PO QODAY 11/03/18 [History Last Taken Unknown] aspirin 81 mg tablet,delayed release 81 mg PO DAILY@0800 11/03/18 [History Last Taken 12/25/18] glimepiride 4 mg tablet 4 mg PO BID 11/03/18 [History Last Taken Unknown] losartan 100 mg-hydrochlorothiazide 25 mg tablet 1 ea PO DAILY 11/03/18 [History Last Taken Unknown] multivitamin 1 ea PO DAILY 11/03/18 [History Last Taken 12/25/18] potassium chloride 10 mEq tablet,extended release(part/cryst) 10 meq PO BID 11/03/18 [History Last Taken Unknown] simvastatin 20 mg tablet 20 mg PO DAILY 11/03/18 [History Last Taken Unknown] biotin 5,000 mcg sublingual tablet 5,000 mcg PO DAILY 12/01/18 [History Last Taken Unknown] hydrocodone-acetaminophen 5-325mg 5mg-325mg 1 tab PO Q6H PRN PRN Pain 3 days #10 TABLETS 06/13/23 [Rx Last Taken Unknown] ketorolac 10 mg tablet 10 mg PO BID PRN pain #10 tabs 06/13/23 [Rx Last Taken Unknown] ondansetron 4 mg disintegrating tablet 4 mg PO Q8H PRN PRN Nausea #10 tabs 06/13/23 [Rx Last Taken Unknown] sitagliptin phosphate 50 mg tablet (Januvia) 50 mg PO DAILY 06/13/23 [History Last Taken Unknown] Allergy/AdvReac Type Severity Reaction Status Date / Time No Known Allergies Allergy Verified 06/13/23 19:45 Family History Mother Diabetes Hypertension Father CVA (cerebral vascular accident) Surgical History History of colonoscopy (~2007) History of left breast biopsy History of lithotripsy History of right breast biopsy (~02/2019) History of tonsillectomy Social History Smoking Status: Never smoker alcohol intake: never ROS ROS ED Constitutional Constitutional ED: Denies chills or fever(s) Eyes Eyes: Denies change in vision ENT ENT ED: Denies rhinorrhea or sore throat Cardiovascular Cardiovascular: Denies chest pain or palpitations Respiratory/Chest Respiratory/Chest: Denies cough or dyspnea Gastrointestinal Gastrointestinal: Denies abdominal pain, diarrhea, nausea or vomiting Genitourinary Genitourinary ED: Reports urinary frequency; Denies difficulty urinating or dysuria Musculoskeletal Musculoskeletal: Reports back pain; Denies extremity pain Integumentary Denies Abrasions or rash Neurologic Neurologic: Denies headache(s) or weakness Psychiatric Psychiatric: Denies anxiety or depression Allergic/Immunologic Allergic/Immunologic ED: Denies lip swelling or urticaria EXAM Physical Exam Const Vital Signs: 06/13/23 19:46 Temperature 96.9 F L Temperature Source Temporal Pulse Rate 87 Respiratory Rate 16 Blood Pressure 170/87 H Blood Pressure Mean 114 Pulse Ox 100 Positive well nourished and well developed General Appearance ED: well developed HEENT Reports normocephalic and head/scalp atraumatic Eyes PERRL and EOMs intact bilaterally Neck supple Chest Wall inspection of chest normal and palpation of chest normal Resp normal respiratory effort and clear to auscultation bilaterally Cardio regular rate and regular rhythm GI normal to inspection, nondistended, normoactive bowel sounds Palpation: soft Back/Spine General Back: CVA tenderness left Extremity normal to inspection Neuro oriented x3 and no sensory deficits noted Sensorium / Orientation: alert Motor Exam: strength 5/5 throughout Psych mental status grossly normal Skin no rashes or lesions noted MDM MDM MDM Narrative Medical decision making narrative: Patient has been taking Aleve regularly at home and is taken for 5 doses today. She is ordered morphine and Zofran for pain as needed. Labwork obtained to evaluate for leukocytosis, anemia, and electrolyte derangement. Urinalysis obtained to evaluate for infection/hematuria. CT flank will be obtained to evaluate for possible kidney stone. History & Record Review Discussion w/independent historian: Patient Additional record(s) reviewed:: Prior labs Lab Data Attestation: I reviewed the patient's lab results. Labs: Laboratory Results - last 24 hr 06/13/23 06/13/23 20:37 22:11 WBC 6.6 RBC 4.78 Hgb 14.0 Hct 42.7 MCV 89.3 MCH 29.3 MCHC 32.8 RDW Std Deviation 39.7 RDW Coeff of [place] 12.1 Plt Count 271 MPV 9.8 Immature Gran % (Auto) 0.300 Neut % (Auto) 46.9 L Lymph % (Auto) 40.7 [place] % (Auto) 6.7 Eos % (Auto) 4.6 Baso % (Auto) 0.8 Absolute Neuts (auto) 3.1 Absolute Lymphs (auto) 2.68 Nucleated RBC % 0 Sodium 139 Potassium 4.1 Chloride 108 H Carbon Dioxide 27.0 Anion Gap 4 L BUN 22 H Creatinine 1.11 H Estim Creat Clear Calc 43.04 Est GFR (MDRD) Af Amer 63 Est GFR (MDRD) Non-Af 52 L BUN/Creatinine Ratio 19.8 Glucose 157 H Calcium 9.6 Urine Color Yellow Urine Clarity Sl. Cloudy Urine pH 5.0 Ur Specific [place] 1.020 Urine Protein 30 H Urine Glucose (UA) 100 H Urine Ketones Negative Urine Occult Blood 10 H Urine Nitrite Negative Urine Bilirubin Negative Urine Urobilinogen Normal Ur Leukocyte Esterase 500 H Urine RBC 0 SEEN Urine WBC 0-5 SEEN Ur Squamous Epith Cells 0-5 SEEN Urine Bacteria 0 SEEN Urine Mucus 0 SEEN Radiography Diagnostic Testing: Clinical Impression(s) from Imaging Studies Abdomen/Pelvis CT 06/13/23 20:07 IMPRESSION: Left hydronephrosis with calculi within the renal pelvis. Cholelithiasis. Small fatty umbilical hernia. Possible left ovarian cystic nodule. Electronically Signed: Jovan Saxena DO at 21:37 EDT Reading Location ID and State: [facility] / [place] Tel [phone], Service support , Treatment and Re-Evaluation :: CBC is unremarkable. Chemistry studies are normal with a BUN of 22 and a creatinine 1.11. Glucose is 157. Urinalysis reveals 0 bacteria with 0-5 epithelial cells and 0-[address] flank reveals left hydronephrosis with calculi in the renal pelvis. Patient does have a staghorn calculus noted. I reviewed the images with the patient. On my review of the images she does not have significant hydronephrosis and her renal function is normal. I do not feel she requires an urgent transfer. I do feel she can follow-up with urology this coming week. She will be treated with [place], Toradol, Zofran. I do not have urology coverage tonight so patient will be given information for both Dr. Sanchez and Dr. Hernández to see who she can be seen by quicker. Patient is given return instructions. Discharge Plan Triage Chief Complaint: Flank Pain ED Provider: Sena Elizondo Dx/Rx/DC Orders Clinical Impression: Staghorn calculus Instructions: ED Kidney Stone w/ Colic Prescriptions: New hydrocodone-acetaminophen 5-325 mg tablet 1 tab PO Q6H PRN PRN (Reason: Pain) 3 Days Qty: 10 0RF ondansetron 4 mg tablet,disintegrating 4 mg PO Q8H PRN PRN (Reason: Nausea) Qty: 10 0RF ketorolac 10 mg tablet 10 mg PO BID PRN (Reason: pain) Qty: 10 0RF No Action biotin 5,000 mcg tablet, sublingual 5,000 mcg PO DAILY multivitamin 1 EACH tablet 1 ea PO DAILY allopurinol 100 MG tablet 100 mg PO QODAY aspirin 81 MG tablet 81 mg PO DAILY@0800 losartan-hydrochlorothiazide 1 EACH tablet 1 ea PO DAILY simvastatin 20 MG tablet 20 mg PO DAILY glimepiride 4 MG tablet 4 mg PO BID potassium chloride 10 MEQ tablet 10 meq PO BID Januvia 50 mg tablet 50 mg PO DAILY Primary Care Provider: Smita Monroe Referrals: Carly Hernández MD [Med Staff - Active Staff] - As soon as possible Brant Sanchez MD [Med Staff - Active Staff] - As soon as possible Smita Monroe DO [Primary Care Provider] - Disposition Disposition: Home, Self Care
[2023-06-13] MEDS: Ondansetron 4 MG/2 ML Vial IV (20:42)
[2023-06-13] MEDS: Morphine 4 MG/ML Syringe IV ×2 (20:42→23:42)
[2023-06-13] MEDS: 0.9% Normal Saline (1000mL) 1,000 ML 150 ML IV (20:44)
[2023-06-13 20:47] LABS: Absolute Lymphocyte Count 2.68 X10^3/uL (0.83-4.51); Absolute Neutrophil Count 3.1 X10^3/uL (2.0-7.7); Basophil# 0.05 X10^3/uL; Basophil% 0.8 % (0-1); Eosinophils% 4.6 % (0-5); Hematocrit 42.7 % (37-47); Lymphocyte # 2.68 X10^3/ul (0.83-4.51); Lymphocyte % 40.7 % (19-41); Mean Corp Hgb Conc 32.8 g/dL (32-36); Mean Corpuscular Hgb 29.3 pg (27.0-32.0); Mean Corpuscular Volume 89.3 fL (81-99); Mean Platelet Vol. 9.8 fl (6.2-12.0); Monocyte# 0.44 X10^3/uL; Monocyte% 6.7 % (0-10); NRBC Flagged by Analyzer 0 % (0-5); Neutrophil # 3.09 X10^3/uL (2.7-7.7); Neutrophil % 46.9 % (47-70); Platelet Count 271 K/mm3 (150-450); RBC Distribution Width CV 12.1 % (11.6-14.6); RBC Distribution Width SD 39.7 fl (35.1-43.9); Red Blood Count 4.78 M/mm3 (4.2-5.4); White Blood Count 6.6 K/mm3 (4.4-11.0)
[2023-06-13 21:02] LABS: Anion Gap 4 (5-15); BUN 22 mg/dL (7-18); BUN/Creat Ratio 19.8 RATIO (10-20); Calcium,Total 9.6 mg/dL (8.5-10.1); Chloride 108 mmol/L (98-107); Creatinine, Serum 1.11 mg/dL (0.55-1.02); EST Glomerular Filtration Rate 52 mL/min (>60); Est Glom Filt Rate - Afr Amer 63 mL/min (>60); Estimated Creatinine Clearance 43.04 ml/min; Glucose 157 mg/dL (74-106); Potassium 4.1 mmol/L (3.5-5.1); Sodium Level 139 mmol/L (136-145)
[2023-06-13 22:17] LABS: Bacteria 0 SEEN /hpf (None Seen); Mucous, Urine 0 SEEN /hpf (<or=2+); Red Blood Cells-Urine 0 SEEN /hpf (0-5)
[2023-06-13 22:22] LABS: Color, Urine Yellow (Yellow); Glucose, Dipstick 100 mg/dl (Normal); Ketone-Dipstick Negative (Negative); Leukocyte Esterase-Dipstick 500 /ul (Negative); Nitrite-Dipstick Negative (Negative); Occult Blood-Urine 10 /ul (Negative); Protein-Dipstick 30 mg/dl (Negative); Urine Bilirubin Dipstick Negative (Negative); Urine Clarity Sl. Cloudy (Clear); Urine Urobilinogen Normal (Normal)
[2023-06-13 22:36] LABS: Squamous Epithelial Cells - UA 0-5 SEEN /hpf (5-10); White Blood Cells 0-5 SEEN /hpf (0-5)
[2023-06-13] MEDS: Ketorolac 15 MG/ML Vial IV (23:43)
[2023-06-13 23:55] VITALS: RESP 16
== END 2023-06-14 00:36 | disposition home or self-care (01) ==
PROVIDERS: Emergency Provider Emergency Medicine; PCP Family Medicine; Visit Provider Emergency Medicine
DX: N13.2 Hydronephrosis with renal and ureteral calculous obstruction (principal); E11.9 Type 2 diabetes mellitus without complications; E78.5 Hyperlipidemia, unspecified; I10 Essential (primary) hypertension
CPT/HCPCS: 74176; 80048; 81001; 85025; 96361; 96374; 96375; 96376; 99283; J7030; A4216; J2405

== ENCOUNTER → 2023-06-16 | Outpatient (CLI) | payer MEDICARE, OTHER, SELFPAY ==
--- NOTE | 2023-06-16 13:32 | RAD_ITS ---
INDICATION: KIDNEY STONES EXAMINATION/TECHNIQUE: X-RAY - XR Abdomen 1 View COMPARISON: CT scan of the abdomen and pelvis of 06/13/2023. FINDINGS: BOWEL GAS PATTERN: Non-obstructive. Mildly distended colon. Fecal retention. FREE AIR: Not assessed on a single supine view. ORGANOMEGALY: Not seen. CALCIFICATIONS: Multiple rounded calcifications consistent with the left renal pelvic stones seen on the recent CT scan. LOWER CHEST: No acute pathology. BONES AND SOFT TISSUES: No acute pathology. RAD/Abdomen Single View IMPRESSION: 1. Multiple stones in the region of the left renal pelvis unchanged. 2. Nonspecific gas pattern. Electronically Signed: Brandon Hudson MD at 12:44 EDT ,
== END | disposition home or self-care (01) ==
PROVIDERS: PCP Family Medicine; Referring Provider Urology; Visit Provider Urology
DX: N20.0 Calculus of kidney (principal)
CPT/HCPCS: 74018

== ENCOUNTER 2023-06-19 08:13 | Day surgery (SDC) | payer MEDICARE, OTHER, SELFPAY ==
--- NOTE | 2023-06-17 09:47 | EKG12_ITS ---
Test Reason : PRE OP Blood Pressure : / mmHG Vent. Rate : 075 BPM Atrial Rate : 075 BPM P-R Int : 236 ms QRS Dur : 072 ms QT Int : 378 ms P-R-T Axes : 011 028 034 degrees QTc Int : 422 ms Sinus rhythm with 1st degree A-V block Low voltage QRS Borderline ECG Confirmed by NIURKA ESPINOZA, ASHLEE ([id number]), index editor RITA VEGA ([id number]) on 06/17/2023 2:12:26 PM Referred By: Carly Hernández Confirmed By:ASHLEE BAH MD
--- NOTE | 2023-06-19 08:00 | OP.PCM_ITS ---
Problems Associated Problem List Diagnoses (1) Staghorn calculus: Report of Operation Date of Procedure: 06/19/23 Pre-Operative Diagnosis: Left renal stones Post-Operative Diagnosis: Same, cystocele Surgery/Procedure Performed:: Cystoscopy, left ureteral stent insertion, left renal extracorporal shockwave lithotripsy Surgeon: Carly Hernández Type of Anesthesia: General Description of Procedure: The patient is a 67-year-old female who presented to the office after having been diagnosed with essentially a left staghorn renal calculus. Informed consent was obtained for surgical intervention with cystoscopy, stent insertion and extracorporal shockwave lithotripsy. The patient was taken to the operating room and placed on the operating room table. Anesthesia monitored the head, neck, airway, IV access and vital signs throughout the case. Once anesthesia was appropriately administered, the patient was placed in dorsal lithotomy posit ion was prepped and draped in usual sterile fashion. At this time she was noted to have postmenopausal vaginal atrophy along with a stage II-III cystocele, and almost no perineal body support without significant rectocele. The cystoscope was inserted through the urethra under direct visualization into the urinary bladder. The bladder mucosa was visualized in its entirety revealing no evidence of mass, erythema or foreign body. The left ureteral orifice was intubated with a Glidewire which was seen on fluoroscopy in the renal pelvis beyond the stones. A 6 Fris[place] 26 cm JJ stent was inserted over the wire with good positioning in the renal pelvis as well as the urinary bladder. At this time the bladder was emptied and the cystoscope was removed. The patient was then repositioned for the lithotripsy portion of the procedure. 3000 shocks were applied to the stones which appeared to be fragmented at the conclusion of the case. The patient was then awakened and taken to the recovery room in good condition. There were no complications during this procedure. Grafts/Implants Used: 6 x 26 JJ stent Complications none Admit VTE Documentation VTE Present on Admission: Yes VTE Mechan Device Prophylaxis: SCD's VTE Pharm Prophylaxis ordered?: No Reason prophylaxis not ordered:: Treatment Not Indicated
[2023-06-19 08:38] VITALS: BP 138/101; PULSE 82; RESP 16; TEMP 36.8; O2SAT 99; BMI 27.1
[2023-06-19] MEDS: Lactated Ringers 1,000 ML 15 ML IV (08:53)
[2023-06-19 09:17] LABS: Bedside Glucose 204 mg/dL (74-106)
[2023-06-19] MEDS: Cefazolin 2 GM in 0.9% Normal Saline (100mL Bag) 100 ML IV (09:50)
--- NOTE | 2023-06-19 10:10 | DCINST_ITS ---
Discharge Instructions Diet Discharge Diet: No restrictions Activity Discharge Activity: Return to Normal Activity May resume sexual activity in: No Restrictions Dressing / Incision Call your doctor if you observe: Fever of 101 or Higher, Inability to urinate and Inability to have a bowel movement Follow Up Care Please Follow Up With: Carly Hernández MD When: the office will call to make follow up arrangements. Test Results: Test results from this visit will be discussed in further detail at your follow- up appointment, if applicable. Discharge Plan Admission Attending Provider: Calry Hernández Primary Care Provider: Smita Monroe Discharge Orders/Prescriptions Prescriptions: New ondansetron HCl [ondansetron HCl] 8 mg tablet 8 mg PO Q8H PRN PRN (Reason: Nausea) 7 Days Qty: 20 0RF oxycodone-acetaminophen [Percocet] 5-325 mg tablet 1 tab PO Q8H PRN (Reason: pain) 5 Days Qty: 15 0RF cephalexin [cephalexin] 500 mg capsule 500 mg PO Q12 3 Days Qty: 6 0RF phenazopyridine [Pyridium] 200 mg tablet 200 mg PO TID PRN PRN (Reason: Bladder Spasms) 7 Days Qty: 30 3RF Continued biotin 5,000 mcg tablet, sublingual 5,000 mcg PO DAILY multivitamin 1 EACH tablet 1 ea PO DAILY allopurinol 100 MG tablet 100 mg PO QODAY aspirin 81 MG tablet 81 mg PO DAILY@0800 losartan-hydrochlorothiazide 1 EACH tablet 1 ea PO DAILY simvastatin 20 MG tablet 20 mg PO DAILY glimepiride 4 MG tablet 4 mg PO BID potassium chloride 10 MEQ tablet 10 meq PO BID Januvia 50 mg tablet 50 mg PO DAILY hydrocodone-acetaminophen 5-325 mg tablet 1 tab PO Q6H PRN PRN (Reason: Pain) 3 Days Qty: 10 0RF ondansetron 4 mg tablet,disintegrating 4 mg PO Q8H PRN PRN (Reason: Nausea) Qty: 10 0RF ketorolac 10 mg tablet 10 mg PO BID PRN (Reason: pain) Qty: 10 0RF Referrals / Follow Up: Smita Monroe DO [Primary Care Provider] - Disposition Disposition (needs filled in before D/C Order can be placed): Home, Self Care
[2023-06-19 10:53] VITALS: BP 127/74; BP 138/99; PULSE 103; RESP 16; TEMP 36.7; O2SAT 95
[2023-06-19 11:00] VITALS: BP 136/67; BP 138/99; PULSE 102; RESP 16; O2SAT 95
[2023-06-19 11:15] VITALS: BP 131/67; BP 138/99; PULSE 91; RESP 16; O2SAT 95
[2023-06-19 11:25] LABS: Bedside Glucose 191 mg/dL (74-106)
[2023-06-19 11:26] VITALS: BP 133/69; BP 138/99; PULSE 88; RESP 16; TEMP 36.3; O2SAT 97
[2023-06-19 12:27] VITALS: BP 124/87; BP 138/99; PULSE 92; RESP 16; TEMP 36.2; O2SAT 94
== END 2023-06-19 12:37 | disposition home or self-care (01) ==
LOC: SDC 08:13 → AC 08:19
PROVIDERS: PCP Family Medicine; Referring Provider Urology; Visit Provider Urology
PROC: (CPT 50590; principal; 2023-06-19 10:10)
DX: N13.2 Hydronephrosis with renal and ureteral calculous obstruction (principal); E11.9 Type 2 diabetes mellitus without complications; I10 Essential (primary) hypertension; E78.5 Hyperlipidemia, unspecified; Z79.899 Other long term (current) drug therapy; Z79.82 Long term (current) use of aspirin; Z79.84 Long term (current) use of oral hypoglycemic drugs
CPT/HCPCS: 52332; 00862; 82962; 93005; J7120; C2617; J2405

== ENCOUNTER 2023-06-23 21:58 | Emergency (ER) | payer MEDICARE, OTHER, SELFPAY ==
[2023-06-23 21:58] VITALS: BP 146/72; PULSE 91; RESP 18; TEMP 36.4; O2SAT 97; BMI 27.3
--- NOTE | 2023-06-23 22:46 | EDS_ITS ---
HPI HPI - GI History of Present Illness Chief Complaint: Constipation Informant: patient Narrative Narrative: Patient is a 67-year-old female presenting with constipation and rectal pressure and discomfort. She has a history of diabetes mellitus, hypertension and recent kidney stone requiring lithotripsy. She is recently been on a course of Percocet for pain however she notes she not had to take any today. Despite heme Dulcolax and Mucinex she is developed worsening constipation. She states she has been able to pass some small hard balls of stool however she is having worsening discomfort and a sensation of constipation. Has some mild nausea but no vomiting. Her only surgical history on her abdomen is a remote tubal ligation. I did not try any enemas or suppositories at home. No other complaints at this time. [facility] Medical History Dietary restriction History of stress test HLD (hyperlipidemia) HTN (hypertension) Non-smoker PONV (postoperative nausea and vomiting) Type II diabetes mellitus Wears glasses Wears partial dentures Home Medications allopurinol 100 mg tablet 100 mg PO QODAY 11/03/18 [History Last Taken Unknown] aspirin 81 mg tablet,delayed release 81 mg PO DAILY@0800 11/03/18 [History Last Taken 06/12/23] glimepiride 4 mg tablet 4 mg PO BID 11/03/18 [History Last Taken Unknown] losartan 100 mg-hydrochlorothiazide 25 mg tablet 1 ea PO DAILY 11/03/18 [History Last Taken Unknown] multivitamin 1 ea PO DAILY 11/03/18 [History Last Taken 12/25/18] potassium chloride 10 mEq tablet,extended release(part/cryst) 10 meq PO BID 11/03/18 [History Last Taken Unknown] simvastatin 20 mg tablet 20 mg PO DAILY 11/03/18 [History Last Taken Unknown] biotin 5,000 mcg sublingual tablet 5,000 mcg PO DAILY 12/01/18 [History Last Taken Unknown] hydrocodone-acetaminophen 5-325mg 5mg-325mg 1 tab PO Q6H PRN PRN Pain 3 days #10 TABLETS 06/13/23 [Rx Last Taken Unknown] ketorolac 10 mg tablet 10 mg PO BID PRN pain #10 tabs 06/13/23 [Rx Last Taken Unknown] ondansetron 4 mg disintegrating tablet 4 mg PO Q8H PRN PRN Nausea #10 tabs 06/13/23 [Rx Last Taken Unknown] sitagliptin phosphate 50 mg tablet (Januvia) 50 mg PO DAILY 06/13/23 [History Last Taken Unknown] cephalexin 500 mg capsule 500 mg PO Q12 post-operative 3 days #6 CAPSULES 06/19/23 [Rx Last Taken Unknown] ondansetron HCl 8 mg tablet 8 mg PO Q8H PRN PRN Nausea 7 days #20 TABLETS 06/19/23 [Rx Last Taken Unknown] oxycodone-acetaminophen 5 mg-325 mg tablet (Percocet) 1 tab PO Q8H PRN pain 5 days #15 tabs 06/19/23 [Rx Last Taken Unknown] phenazopyridine 200 mg tablet (Pyridium) 200 mg PO TID PRN PRN Bladder Spasms 7 days #30 tabs 06/19/23 [Rx Last Taken Unknown] Allergy/AdvReac Type Severity Reaction Status Date / Time No Known Allergies Allergy Verified 06/23/23 22:00 Family History Mother Diabetes Hypertension Father CVA (cerebral vascular accident) Surgical History History of colonoscopy (~2007) History of left breast biopsy History of lithotripsy History of right breast biopsy (~02/2019) History of salpingectomy History of tonsillectomy Social History Smoking Status: Never smoker alcohol intake: never ROS ROS ED Constitutional Constitutional ED: Denies chills or fever(s) Respiratory/Chest Respiratory/Chest: Denies cough Gastrointestinal Gastrointestinal: Reports constipation and nausea; Denies abdominal pain, melena or vomiting Genitourinary Genitourinary ED: Denies dysuria or hematuria Musculoskeletal Musculoskeletal: Denies arthralgias, back pain or myalgias Integumentary Denies rash Hematologic/Lymphatic Hematologic/Lymphatic: Denies easy bleeding or easy bruising EXAM Physical Exam Const Vital Signs: 06/23/23 21:58 Temperature 97.6 F L Temperature Source Temporal Pulse Rate 91 Respiratory Rate 18 Blood Pressure 146/72 H Blood Pressure Mean 96 Pulse Ox 97 Oxygen Delivery Method Room Air Positive well nourished and well developed General Appearance ED: well developed and NAD HEENT Reports moist mucous membranes Neck supple Resp normal respiratory effort and clear to auscultation bilaterally Cardio regular rate and regular rhythm GI non-tender and non-distended GI Narrative: On rectal exam patient has a signs of fecal impaction with multiple large hard balls of stool. This is removed manually with some discomfort to the patient but overall tolerated well. Auscultation: normoactive bowel sounds Palpation: soft; Negative for tender or guarding Extremity full ROM Neuro Sensorium / Orientation: alert, oriented to person, oriented to place and oriented to time Psych mental status grossly normal MDM MDM MDM Narrative Medical decision making narrative: Evaluate for constipation and rectal pressure. She appears nontoxic. She has recently been on opioids which I suspect is the cause of her constipation. She does have fecal impaction on sickle exam. She is disimpacted at the bedside and then was given soapsuds enema. Will reevaluate after this. I do not think this is a small bowel obstruction, large bowel obstruction or more severe process given her normal vital signs, lack of more systemic symptoms and findings on rectal exam. Evaluation after soapsuds enema patient states she is feeling better. She has a further bowel movement. Will be discharged with instructions to take over-the- counter senna or magnesium citrate to encourage other bowel movements and then also started on daily MiraLAX. Discussed high-fiber diet as well as drinking plenty of fluids. Given return precautions and discussed signs/symptoms of small bowel obstruction. She verbalized agreement understand this plan. Discharged home in stable and improved condition. Considered imaging such as CT or KUB but based on how benign physical exam is will defer at this time. Discharge Plan Triage Chief Complaint: Constipation ED Provider: Suzan Hernandez Dx/Rx/DC Orders Clinical Impression: Acute constipation Instructions: Eating a High-Fiber Diet, ED Constipation (Adult) Prescriptions: No Action biotin 5,000 mcg tablet, sublingual 5,000 mcg PO DAILY multivitamin 1 EACH tablet 1 ea PO DAILY allopurinol 100 MG tablet 100 mg PO QODAY aspirin 81 MG tablet 81 mg PO DAILY@0800 losartan-hydrochlorothiazide 1 EACH tablet 1 ea PO DAILY simvastatin 20 MG tablet 20 mg PO DAILY glimepiride 4 MG tablet 4 mg PO BID potassium chloride 10 MEQ tablet 10 meq PO BID ondansetron HCl [ondansetron HCl] 8 mg tablet 8 mg PO Q8H PRN PRN (Reason: Nausea) 7 Days Qty: 20 0RF oxycodone-acetaminophen [Percocet] 5-325 mg tablet 1 tab PO Q8H PRN (Reason: pain) 5 Days Qty: 15 0RF cephalexin [cephalexin] 500 mg capsule 500 mg PO Q12 3 Days Qty: 6 0RF phenazopyridine [Pyridium] 200 mg tablet 200 mg PO TID PRN PRN (Reason: Bladder Spasms) 7 Days Qty: 30 3RF Januvia 50 mg tablet 50 mg PO DAILY hydrocodone-acetaminophen 5-325 mg tablet 1 tab PO Q6H PRN PRN (Reason: Pain) 3 Days Qty: 10 0RF ondansetron 4 mg tablet,disintegrating 4 mg PO Q8H PRN PRN (Reason: Nausea) Qty: 10 0RF ketorolac 10 mg tablet 10 mg PO BID PRN (Reason: pain) Qty: 10 0RF Primary Care Provider: Smita Monroe Referrals: Smita Monroe DO [Primary Care Provider] - Activity Restrictions/Additional Instructions: I recommend taking [id number] senna or magnesium citrate which are both laxatives. They will help you have further bowel movements. In addition once you have results with that I recommend starting daily MiraLAX and a high-fiber diet until your bowel movements have returned to normal. Make sure you are d rinking plenty of fluids. Return to the ER if you have a progression or worsening of your symptoms or further concerns
[2023-06-24 00:09] VITALS: PULSE 75; RESP 16; O2SAT 98
== END 2023-06-24 00:10 | disposition home or self-care (01) ==
LOC: ED 22:27
PROVIDERS: Emergency Provider Emergency Medicine; PCP Family Medicine; Visit Provider Emergency Medicine
DX: K56.41 Fecal impaction (principal); E11.9 Type 2 diabetes mellitus without complications; E78.5 Hyperlipidemia, unspecified; I10 Essential (primary) hypertension
CPT/HCPCS: 99284

== ENCOUNTER → 2023-07-04 | Outpatient (CLI) | payer MEDICARE, OTHER, SELFPAY ==
--- NOTE | 2023-07-04 09:33 | RAD_ITS ---
STUDY: X-RAY - ABDOMEN/PELVIS REASON FOR EXAM: Female, 67 years old. Kidney stones. TECHNIQUE: Single AP view of the abdomen / pelvis. COMPARISON: June 16, 2023 FINDINGS: Left double-J ureteral stent placement since the prior exam. Fragmentation of the multiple left renal calculi noted on the prior study. Normal bowel gas pattern with air seen to the rectosigmoid. Moderate amount of feces in the colon. Normal soft tissue structures. Normal visualized osseous structures. RAD/Abdomen Single View IMPRESSION: Placement of left double-J ureteral stent with fragmentation of left gallstones. No acute finding. Electronically Signed: Lee Hernandez MD at 9:56 EDT ,
== END | disposition home or self-care (01) ==
LOC: MTRAD 09:32
PROVIDERS: PCP Family Medicine; Referring Provider Urology; Visit Provider Urology
DX: N20.0 Calculus of kidney (principal)
CPT/HCPCS: 74018

== ENCOUNTER → 2023-07-11 | Outpatient (CLI) | payer MEDICARE, OTHER, SELFPAY ==
--- NOTE | 2023-07-11 09:16 | RAD_ITS ---
STUDY: X-RAY - ABDOMEN/PELVIS REASON FOR EXAM: Female, 67 years old. KIDNEY STONE TECHNIQUE: Single AP view of the abdomen / pelvis. COMPARISON: 07/04/2023 FINDINGS: Normal visualized lung bases. There is an abundance of fecal material throughout the colon. Left ureteral stent. Large stone projecting in the medial aspect left kidney suggestive of a staghorn calculus. Normal soft tissue structures. Normal visualized osseous structures. RAD/Abdomen Single View IMPRESSION: Left ureteral stent with probable large staghorn calculus of the left renal pelvis. Electronically Signed: Kenny Hartman MD at 17:10 EDT ,
== END | disposition home or self-care (01) ==
LOC: MTRAD 09:15
PROVIDERS: PCP Family Medicine; Referring Provider Urology; Visit Provider Urology
DX: N20.0 Calculus of kidney (principal)
CPT/HCPCS: 74018

== ENCOUNTER → 2023-08-21 | Outpatient (CLI) | payer MEDICARE, OTHER, SELFPAY ==
[2023-09-23 14:35] LABS: Source Left Kidney
== END | disposition home or self-care (01) ==
LOC: LABSPEC 16:12
PROVIDERS: PCP Family Medicine; Referring Provider Urology; Visit Provider Urology
DX: N20.0 Calculus of kidney (principal)
CPT/HCPCS: 82360

== ENCOUNTER 2023-09-04 07:07 | Day surgery (SDC) | payer MEDICARE, OTHER, SELFPAY ==
[2023-09-04] VITALS (7 sets, daily range): BP systolic 115–126; BP diastolic 63–82; PULSE 69–86; RESP 16–18; TEMP 36.1–36.2; O2SAT 97–100; BMI 26.2
[2023-09-04] MEDS: Lactated Ringers 1,000 ML 15 ML IV (07:34)
[2023-09-04 08:06] LABS: Bedside Glucose 230 mg/dL (74-106)
[2023-09-04] MEDS: Cefazolin 2 GM in 0.9% Normal Saline (100mL Bag) 100 ML IV (08:48)
--- NOTE | 2023-09-04 09:20 | DCINST_ITS ---
Discharge Instructions Diet Discharge Diet: No restrictions Activity Discharge Activity: Return to Normal Activity Dressing / Incision Call your doctor if you observe: Fever of 101 or Higher, Inability to urinate and Inability to have a bowel movement Follow Up Care Please Follow Up With: Carly Hernández MD When: The office will call the patient to make arrangements for KUB and cystoscopy with stent removal. Test Results: Test results from this visit will be discussed in further detail at your follow- up appointment, if applicable. Discharge Plan Admission Attending Provider: Carly Hernández Primary Care Provider: Smita Monroe Discharge Orders/Prescriptions Prescriptions: New oxycodone-acetaminophen [Percocet] 5-325 mg tablet 1 tab PO Q8H PRN (Reason: pain) 3 Days Qty: 10 0RF cephalexin [cephalexin] 500 mg capsule 500 mg PO Q12 3 Days Qty: 6 0RF Continued biotin 5,000 mcg tablet, sublingual 5,000 mcg PO DAILY multivitamin 1 EACH tablet 1 ea PO DAILY allopurinol 100 MG tablet 100 mg PO QODAY aspirin 81 MG tablet 81 mg PO DAILY@0800 losartan-hydrochlorothiazide 1 EACH tablet 1 ea PO DAILY simvastatin 20 MG tablet 20 mg PO DAILY glimepiride 4 MG tablet 4 mg PO BID potassium chloride 10 MEQ tablet 10 meq PO BID oxycodone-acetaminophen [Percocet] 5-325 mg tablet 1 tab PO Q8H PRN (Reason: pain) 5 Days Qty: 15 0RF phenazopyridine [Pyridium] 200 mg tablet 200 mg PO TID PRN PRN (Reason: Bladder Spasms) 7 Days Qty: 30 3RF metronidazole 500 mg tablet 500 mg PO Q12H Januvia 50 mg tablet 50 mg PO DAILY Referrals / Follow Up: Smita Monroe DO [Primary Care Provider] - Disposition Disposition (needs filled in before D/C Order can be placed): Home, Self Care
--- NOTE | 2023-09-04 09:24 | PCM.OPRPT ---
Report of Operation Date of Procedure: 09/04/23 Pre-Operative Diagnosis: Left renal calculi Post-Operative Diagnosis: Same Surgery/Procedure Performed:: Left renal extracorporal shockwave lithotripsy Surgeon: Carly Hernández Type of Anesthesia: General Description of Procedure: The patient is a 67-year-old female with multiple left renal stones who now presents for her second extracorporal shockwave lithotripsy as part of her sandwich therapy. Informed consent has been obtained. She was taken to the operating room and placed on the operating room table. Anesthesia monitored the head, neck, airway, IV access and vital signs throughout the case. Once anesthesia was appropriately ministered, she was aligned with the lithotripter. Her stone fragments were easily visualized. 3000 shocks were applied and the stones appeared to be well fragmented. The patient was then awakened and taken to the recovery room in good condition. There were no complications during this procedure. Complications None Admit VTE Documentation VTE Present on Admission: Yes VTE Mechan Device Prophylaxis: SCD's VTE Pharm Prophylaxis ordered?: No Reason prophylaxis not ordered:: Treatment Not Indicated
[2023-09-04 10:28] LABS: Bedside Glucose 210 mg/dL (74-106)
== END 2023-09-04 11:05 | disposition home or self-care (01) ==
LOC: SDC 07:08 → AC 07:10
PROVIDERS: PCP Family Medicine; Referring Provider Urology; Visit Provider Urology
PROC: (CPT 50590; principal; 2023-09-04 08:40)
DX: N20.0 Calculus of kidney (principal); E11.9 Type 2 diabetes mellitus without complications; I10 Essential (primary) hypertension; E78.5 Hyperlipidemia, unspecified; Z79.899 Other long term (current) drug therapy; Z79.82 Long term (current) use of aspirin; Z79.84 Long term (current) use of oral hypoglycemic drugs
CPT/HCPCS: 50590; 00873; 82962; J7120; J2405

== ENCOUNTER → 2023-10-06 | Outpatient (CLI) | payer MEDICARE, OTHER, SELFPAY ==
--- NOTE | 2023-10-06 10:22 | RAD_ITS ---
INDICATION: STONES EXAMINATION/TECHNIQUE: X-RAY - XR Abdomen 1 View COMPARISON: Prior study dated: 07/11/2023 FINDINGS: BOWEL GAS PATTERN: Non-obstructive. No bowel or stomach distention. FREE AIR: Not assessed on a single supine view. ORGANOMEGALY: Not seen. CALCIFICATIONS: Previously noted noted large calcification/stone overlying the left kidney is not seen at this time. Left-sided double-J stent catheter is again seen in stable position. LOWER CHEST: Included on this exam. BONES AND SOFT TISSUES: No acute pathology. RAD/Abdomen Single View IMPRESSION: Previously noted large calcification/stone overlying the left kidney is not seen on this exam. Left double-J stent catheter in stable position Electronically Signed: Brandon Hudson MD at 10:41 EST ,
== END | disposition home or self-care (01) ==
PROVIDERS: PCP Family Medicine; Referring Provider Urology; Visit Provider Urology
DX: N20.0 Calculus of kidney (principal)
CPT/HCPCS: 74018

== ENCOUNTER → 2024-02-20 | Outpatient (CLI) | payer MEDICARE, OTHER, SELFPAY ==
--- NOTE | 2024-02-20 12:27 | BI_ITS ---
MAMMOGRAPHY - BILATERAL SCREENING REASON FOR EXAM: Female, 68 years old. Routine annual screening examination. PERTINENT HISTORY: Non-contributory. History of left ultrasound-guided biopsy. TECHNIQUE: Digital bilateral breast boy (3D mammographic acquisition) in the CC and MLO projections. 2-D mediolateral oblique (MLO) and craniocaudad (CC) views of both breasts were obtained. CAD: Full Field Digital Mammography with Computer Added Detection was performed. COMPARISON: Comparison is made with prior study January 17, 2023 and September 03, 2021. FINDINGS: Breast Composition: The breasts are heterogeneously dense, which may obscure small masses. There are no dominant masses or suspicious calcifications. A tissue clip marker is once again seen in the anterior upper lateral aspect of the left breast within a 9.5 mm nodule. A tissue marker is also seen within the mid central depth of the right breast. Stable bilateral fat-containing axillary lymph nodes. No other significant abnormalities are identified. There has been no significant change since the prior study. BI/SCRN MAMM (CAD)W/BOY BILAT IMPRESSION: Stable bilateral screening mammogram. Yearly follow-up mammogram recommended. (A) ASSESSMENT CATEGORY: BIRADS Category 2: Benign. A letter regarding these results will be sent to the patient by the facility within 30 days. Approximately 10% of breast cancers are not detected by mammography. A normal mammogram should not delay biopsy of a clinically suspicious abnormality. [id number] Electronically Signed: Donte Mott MD at 13:08 EDT ,
== END | disposition home or self-care (01) ==
LOC: OPBI 12:26
PROVIDERS: PCP Family Medicine; Referring Provider Family Medicine; Visit Provider Family Medicine
DX: Z12.31 Encounter for screening mammogram for malignant neoplasm of breast (principal)
CPT/HCPCS: 77063; 77067

== ENCOUNTER 2024-05-12 21:05 | Emergency (ER) | payer MEDICARE, OTHER, SELFPAY ==
[2024-05-12 21:06] VITALS: BP 160/83; PULSE 89; RESP 16; TEMP 36.8; O2SAT 98; BMI 28.0
--- NOTE | 2024-05-12 21:28 | EDS_ITS ---
HPI History of Present Illness Chief Complaint: Chest Pain Informant: patient Onset/Context/Timing Onset: Days (3-4) Activity at onset: gradual Timing: Continuous Quality: Positive for Tightness (Squeezing) Location: Left Chest (Left posterior chest) Worsened By: Nothing Relieved By: Narcotics (Coding) Narrative Narrative: Patient presents with pain over her left posterior chest and thoracic area. Patient states that this has been getting progressively worse over the last 3 to 4 days. Patient describes it as tightness and squeezing. Patient states nothing makes it worse. Patient states she had a leftover Tylenol with codeine which she took which seemed to help with the pain. Patient admits to some nausea but denies any vomiting. Patient denies any diaphoresis. Patient denies any shortness of breath or cough. Patient denies any fevers or chills. CVD Risk Factors: Positive for Hypertension, Diabetes, Hypercholesterolemia and Family History 1' </=55; Negative for Smoking PE Risk Factors: Negative for Recent Travel/Surgery, Recent Immobilization, Prior DVT or PE, Cancer or OCP + Smoking + >/=35 PFSH [facility] Medical History Acute pharyngitis Kidney stones Wears glasses Wears partial dentures Dietary restriction PONV (postoperative nausea and vomiting) Non-smoker History of stress test HTN (hypertension) HLD (hyperlipidemia) Type II diabetes mellitus Home Medications ?Medication ?Instructions ?Recorded ?Last Taken ?Type allopurinol 100 mg tablet 100 mg PO QODAY 11/03/18 Unknown History aspirin 81 mg tablet,delayed 81 mg PO DAILY@0800 11/03/18 09/03/23 History release glimepiride 4 mg tablet 4 mg PO BID 11/03/18 Unknown History losartan 100 1 ea PO DAILY 11/03/18 Unknown History mg-hydrochlorothiazide 25 mg tablet multivitamin 1 ea PO DAILY 11/03/18 12/25/18 History potassium chloride 10 mEq 10 meq PO BID 11/03/18 Unknown History tablet,extended release(part/cryst) simvastatin 20 mg tablet 20 mg PO DAILY 11/03/18 Unknown History biotin 5,000 mcg sublingual tablet 5,000 mcg PO DAILY 12/01/18 Unknown History sitagliptin phosphate 50 mg tablet 50 mg PO DAILY 06/13/23 Unknown History (Januvia) oxycodone-acetaminophen 5 mg-325 1 tab PO Q8H PRN pain 3 days #10 05/13/24 Unknown Rx mg tablet (Percocet) tabs Allergy/AdvReac Type Severity Reaction Status Date / Time No Known Allergies Allergy Verified 05/12/24 21:07 Family History Mother Diabetes Hypertension Father CVA (cerebral vascular accident) Surgical History History of cystoscopy Hx of cystoscopy History of salpingectomy History of right breast biopsy (~02/2019) History of tonsillectomy History of left breast biopsy History of lithotripsy History of colonoscopy (~2007) Social History Smoking Status: Never smoker alcohol intake: never ROS ROS ED Constitutional Constitutional ED: Denies chills or fever(s) Eyes Eyes: Denies blurry vision or change in vision ENT ENT ED: Denies rhinorrhea or sore throat Cardiovascular Cardiovascular: Denies chest pain or palpitations Respiratory/Chest Respiratory/Chest: Denies cough or dyspnea Gastrointestinal Gastrointestinal: Denies nausea or vomiting Genitourinary Genitourinary ED: Reports urinary frequency; Denies dysuria or hematuria Musculoskeletal Musculoskeletal: Reports back pain; Denies neck pain Integumentary Denies abscess or rash Neurologic Neurologic: Denies headache(s) or weakness Allergic/Immunologic Allergic/Immunologic ED: Denies mouth swelling or urticaria EXAM Physical Exam Const Vital Signs: 05/12/24 21:06 05/12/24 21:48 05/12/24 22:06 Temperature 98.2 F Temperature Source Temporal Pulse Rate 89 80 Respiratory Rate 16 13 Respiratory Effort Blood Pressure 160/83 H 132/82 H Blood Pressure Mean 108 98 Pulse Ox 98 95 Oxygen Delivery Method Room Air Room Air 05/12/24 22:13 05/12/24 23:00 05/13/24 00:00 Temperature Temperature Source Pulse Rate 78 80 Respiratory Rate 17 16 Respiratory Effort Normal Blood Pressure 132/73 H 131/77 H Blood Pressure Mean 92 95 Pulse Ox 99 98 Oxygen Delivery Method Room Air Room Air Positive well nourished and well developed General Appearance ED: well developed and NAD HEENT Reports moist mucous membranes Neck supple and no JVD Resp normal respiratory effort and clear to auscultation bilaterally Cardio regular rate and regular rhythm GI soft to palpation, non-tender and non-distended Extremity normal to inspection Neuro oriented x3, CN's II-XII intact bilaterally and no sensory deficits noted Sensorium / Orientation: awake and alert Motor Exam: strength 5/5 throughout Psych mental status grossly normal Heart Score History: Slightly/Non-Suspicious ECG: Normal Age: >/= 65 years Risk Factors: >/= 3 Risk Factors or History of CAD Troponin: </= Normal Limit Score: 4 MDM MDM MDM Narrative Medical decision making narrative: Differential diagnosis includes cardiac dysrhythmia, cardiac ischemia, pneumonia, pneumothorax, pulmonary embolism, ureteral calculus, urinary tract infection, pyelonephritis, musculoskeletal back pain, and electrolyte abnormality. EKG will be obtained to assess for cardiac dysrhythmia and cardiac ischemia. Chest x-ray will be obtained to assess for pneumonia and pneumothorax. CBC will be obtained to assess for leukocytosis and anemia. Basic metabolic profile will be obtained to assess for electrolyte abnormality and renal function. High-sensitivity troponin will be obtained to assess for cardiac ischemia. D-dimer will be obtained to assess for pulmonary embolism. Urinalysis will be obtained to assess for urinary tract infection and hematuria. CT scan of the abdomen pelvis will be obtained to assess for ureteral calculus. Lab Data Attestation: I reviewed the patient's lab results. Lab results narrative: CBC was reviewed and was within normal limits. Basic metabolic profile was reviewed. BUN was slightly elevated at 36 and creatinine was slightly elevated at 1.33. Glucose was mildly elevated at 235. High-sensitivity troponin was reviewed and was normal at 6. D-dimer was reviewed and was 0.60. This is normal for the patient's age. Urinalysis was reviewed. Leukocyte esterase was 100. There are no white blood cells or bacteria seen. Labs: Laboratory Results - last 24 hr 05/12/24 05/12/24 21:57 23:52 WBC 7.3 RBC 4.97 Hgb 14.2 Hct 43.8 MCV 88.1 MCH 28.6 MCHC 32.4 RDW Std Deviation 40.1 RDW Coeff of [place] 12.7 Plt Count 252 MPV 10.1 Immature Gran % (Auto) 0.300 Neut % (Auto) 41.8 L Lymph % (Auto) 45.3 H [place] % (Auto) 7.8 Eos % (Auto) 4.1 Baso % (Auto) 0.7 Absolute Neuts (auto) 3.1 Absolute Lymphs (auto) 3.31 Nucleated RBC % 0 D-Dimer Quant (PE/DVT) 0.60 H* Sodium 138 Potassium 3.6 Chloride 103 Carbon Dioxide 28.0 Anion Gap 7 BUN 36 H Creatinine 1.33 H Estim Creat Clear Calc 38.81 Est GFR (MDRD) Af Amer 51 L Est GFR (MDRD) Non-Af 42 L BUN/Creatinine Ratio 27.1 H Glucose 235 H Calcium 9.7 Troponin I High Sens 6 Urine Color Yellow Urine Clarity Clear Urine pH 6.0 Ur Specific [place] 1.010 Urine Protein Negative Urine Glucose (UA) 1000 H Urine Ketones Negative Urine Occult Blood Negative Urine Nitrite Negative Urine Bilirubin Negative Urine Urobilinogen Normal Ur Leukocyte Esterase 100 H Urine RBC 0 SEEN Urine WBC 0 SEEN Ur Squamous Epith Cells 0 SEEN Urine Bacteria 0 SEEN Urine Mucus 0 SEEN Radiography Chest X-Ray - ED: 1 View, Read by ED Physician, Read by Radiologist and No Acute Disease Diagnostic Testing: Clinical Impression(s) from Imaging Studies Chest X-Ray 05/12/24 22:05 IMPRESSION: Atelectasis or scarring left lung base similar to the prior exam. No acute abnormality. Electronically Signed: Tom Laughlin MD at 23:13 EDT Reading Location ID and State: [id number] [facility] Tel , Service support , Abdomen/Pelvis CT 05/12/24 23:25 IMPRESSION: 1. Mild left hydronephrosis with a dilated left renal pelvis. There are two small stones in the dependent portion of the dilated left renal pelvis largest measuring 5 mm. No obstruction of the ureteropelvic junction. 2. Cholelithiasis. 3. Coronary artery disease. 4. Small hiatal hernia. 5. Subsegmental atelectasis in the lung bases bilaterally. Electronically Signed: Tom Laughlin MD at 0:18 EDT , Portable 1 view chest x-ray was obtained. On my independent interpretation, lung wilburn show atelectasis in the left base. There is normal cardiac silhouette. Bony thorax is normal. There is no acute process noted. Radiologist also interpreted the x-ray and agrees. CT scan of the abdomen pelvis was obtained. There is mild left hydronephrosis with dilated left renal pelvis. There are 2 small stones in the dilated left renal pelvis. There is no obstruction noted. There is subsegmental atelectasis in the lung bases bilaterally. There is a small hiatal hernia noted. This was interpreted by the radiologist and was also independently reviewed by myself. EKG Initial EKG: Attestation: I personally reviewed and interpreted this EKG as follows: Interpretation: Sinus Rhythm (With first-degree AV block with a rate of 91) and No Acute Injury Pattern Comments: EKG was obtained. On my independent interpretation, it shows a sinus rhythm with a first-degree AV block with a rate of 91. AK interval was prolonged at 226 ms. QRS interval was normal at 72 ms. QTc interval was normal at 447 ms. Emery was normal at 19. There is low voltage. There are no acute ST or T wave changes noted. Prior EKG tracings: available for review Prior: Unchanged (06/19/2023) Treatment and Re-Evaluation :: Patient was given aspirin here. Patient was given a dose of morphine. Patient was advised of her findings. Patient has a HEART score of 4. However, given her persistent pain for 3 to 4 days and a normal troponin, I doubt that this is cardiac in nature. Patient is agreeable with this. Patient states she tolerated Percocet in the past. Patient was given a prescription for this. Patient was instructed to follow-up with her primary care physician in 5 to 7 days. Patient was instructed to return if worse in any way. Patient understood and was agreeable with the plan. All questions were answered. Discharge Plan Triage Chief Complaint: Chest Pain ED Provider: Reed Lilly Dx/Rx/DC Orders Clinical Impression: Acute left-sided thoracic back pain, Type II diabetes mellitus, HTN (hypertension) Instructions: ED Chest Pain, Uncertain Cause, ED Back and Neck Pain, General Prescriptions: Continued oxycodone-acetaminophen [Percocet] 5-325 mg tablet 1 tab PO Q8H PRN (Reason: pain) 3 Days Qty: 10 0RF No Action biotin 5,000 mcg tablet, sublingual 5,000 mcg PO DAILY multivitamin 1 EACH tablet 1 ea PO DAILY allopurinol 100 MG tablet 100 mg PO QODAY aspirin 81 MG tablet 81 mg PO DAILY@0800 losartan-hydrochlorothiazide 1 EACH tablet 1 ea PO DAILY simvastatin 20 MG tablet 20 mg PO DAILY glimepiride 4 MG tablet 4 mg PO BID potassium chloride 10 MEQ tablet 10 meq PO BID Januvia 50 mg tablet 50 mg PO DAILY Primary Care Provider: Smita Monroe Referrals: Smita Monroe DO [Primary Care Provider] - 5-7 Days Print Language: [place] Disposition Disposition: Home, Self Care
--- NOTE | 2024-05-12 21:48 | EKG12_ITS ---
Test Reason : CP Blood Pressure : / mmHG Vent. Rate : 091 BPM Atrial Rate : 091 BPM P-R Int : 226 ms QRS Dur : 072 ms QT Int : 364 ms P-R-T Axes : 016 019 018 degrees QTc Int : 447 ms Sinus rhythm with 1st degree A-V block Low voltage QRS Borderline ECG Confirmed by Tom Pimentel ([id number]), newspaper editor JOE BADILLO ([id number]) on 05/13/2024 2:10:06 PM Referred By: JACKIE Confirmed By:Tom Pimentel
--- NOTE | 2024-05-12 22:05 | RAD_ITS ---
EXAM: XR CHEST, 1 VIEW CLINICAL INDICATION: chest pain TECHNIQUE: Frontal view of the chest. COMPARISON: 03/31/2013. FINDINGS: LUNGS AND PLEURAL SPACES: Atelectasis or scarring left lung base similar to the prior exam. No pneumothorax. No effusion. HEART: Unremarkable. Cardiac silhouette not enlarged. MEDIASTINUM: Central airways and mediastinal contour are unremarkable. BONES/JOINTS: Unremarkable. No acute fracture. SOFT TISSUES: Unremarkable. RAD/Chest 1 View (Portable) IMPRESSION: Atelectasis or scarring left lung base similar to the prior exam. No acute abnormality. Electronically Signed: Tom Laughlin MD at 23:13 EDT ,
[2024-05-12 22:06] VITALS: BP 132/82; PULSE 80; RESP 13; O2SAT 95
[2024-05-12] MEDS: Aspirin 81 MG TAB.CHEW 324 MG PO (22:10)
[2024-05-12 22:11] LABS: Absolute Lymphocyte Count 3.31 X10^3/uL (0.83-4.51); Absolute Neutrophil Count 3.1 X10^3/uL (2.0-7.7); Basophil# 0.05 X10^3/uL; Basophil% 0.7 % (0-1); Eosinophils% 4.1 % (0-5); Hematocrit 43.8 % (37-47); Hemoglobin 14.2 g/dL (12.0-15.0); Lymphocyte # 3.31 X10^3/ul (0.83-4.51); Lymphocyte % 45.3 % (19-41); Mean Corp Hgb Conc 32.4 g/dL (32-36); Mean Corpuscular Hgb 28.6 pg (27.0-32.0); Mean Corpuscular Volume 88.1 fL (81-99); Mean Platelet Vol. 10.1 fl (6.2-12.0); Monocyte# 0.57 X10^3/uL; Monocyte% 7.8 % (0-10); NRBC Flagged by Analyzer 0 % (0-5); Neutrophil # 3.05 X10^3/uL (2.7-7.7); Neutrophil % 41.8 % (47-70); Platelet Count 252 K/mm3 (150-450); RBC Distribution Width CV 12.7 % (11.6-14.6); RBC Distribution Width SD 40.1 fl (35.1-43.9); Red Blood Count 4.97 M/mm3 (4.2-5.4); White Blood Count 7.3 K/mm3 (4.4-11.0)
[2024-05-12 22:32] LABS: Anion Gap 7 (5-15); BUN 36 mg/dL (7-18); BUN/Creat Ratio 27.1 RATIO (10-20); Calcium,Total 9.7 mg/dL (8.5-10.1); Chloride 103 mmol/L (98-107); Creatinine, Serum 1.33 mg/dL (0.55-1.02); EST Glomerular Filtration Rate 42 mL/min (>60); Est Glom Filt Rate - Afr Amer 51 mL/min (>60); Estimated Creatinine Clearance 38.81 ml/min; Glucose 235 mg/dL (74-106); Potassium 3.6 mmol/L (3.5-5.1); Sodium Level 138 mmol/L (136-145); Troponin-I HS 6 pg/mL (3.0-54.0)
[2024-05-12 23:00] VITALS: BP 132/73; PULSE 78; RESP 17; O2SAT 99
--- NOTE | 2024-05-12 23:25 | CT_ITS ---
EXAM: CT ABDOMEN AND PELVIS WITHOUT INTRAVENOUS CONTRAST CLINICAL INDICATION: Left flank pain TECHNIQUE: Helically acquired images were obtained of the abdomen and pelvis without intravenous contrast. This CT exam was performed using one or more of the following dose reduction techniques: automated exposure control, adjustment of the mA and/or kV according to patient size, and/or use of iterative reconstruction technique. RADIATION DOSE: CTDIvol = 8.02 mGy, DLP = 430.75 mGy-cm COMPARISON: No relevant prior studies available. FINDINGS: LOWER THORAX: Coronary artery calcifications. Small hiatal hernia. Subsegmental atelectasis in the lung bases bilaterally. No cardiomegaly. No significant pericardial effusion. ABDOMEN: LIVER: Unremarkable. Homogeneous. GALLBLADDER AND BILE DUCTS: Cholelithiasis. No gallbladder distention or wall edema. No intra- or extrahepatic biliary ductal dilation. PANCREAS: Unremarkable. No focal cystic mass. SPLEEN: Unremarkable. Normal size without focal cystic or solid mass. ADRENALS: Unremarkable. No nodules. KIDNEYS AND URETERS: Mild left hydronephrosis with a dilated left renal pelvis. There are two small stones in the dependent portion of the dilated left renal pelvis largest measuring 5 mm. No obstruction of the ureteropelvic junction. STOMACH AND BOWEL: Unremarkable. No stomach or bowel distention. No focal inflammatory change. PELVIS: APPENDIX: No evidence of acute appendicitis. BLADDER: Unremarkable. REPRODUCTIVE: Unremarkable as visualized. No mass. ABDOMEN and PELVIS: INTRAPERITONEAL SPACE: Unremarkable. No ascites or other fluid collection. No free air. BONES/JOINTS: Unremarkable. No suspicious lytic or blastic abnormality. SOFT TISSUES: Unremarkable. No discrete abdominal or pelvic wall hernia. VASCULATURE: See above. LYMPH NODES: Unremarkable. No enlarged lymph nodes. CT/Abdomen/Pelvis without Cont IMPRESSION: 1. Mild left hydronephrosis with a dilated left renal pelvis. There are two small stones in the dependent portion of the dilated left renal pelvis largest measuring 5 mm. No obstruction of the ureteropelvic junction. 2. Cholelithiasis. 3. Coronary artery disease. 4. Small hiatal hernia. 5. Subsegmental atelectasis in the lung bases bilaterally. Electronically Signed: Tom Laughlin MD at 0:18 EDT ,
[2024-05-13] VITALS: BP 131/77; PULSE 80; RESP 16; O2SAT 98
[2024-05-13] LABS: Bacteria 0 SEEN /hpf (None Seen); Mucous, Urine 0 SEEN /hpf (<or=2+); Red Blood Cells-Urine 0 SEEN /hpf (0-5); Squamous Epithelial Cells - UA 0 SEEN /hpf (5-10); White Blood Cells 0 SEEN /hpf (0-5)
[2024-05-13 00:02] LABS: Color, Urine Yellow (Yellow); Glucose, Dipstick 1000 mg/dl (Normal); Ketone-Dipstick Negative (Negative); Leukocyte Esterase-Dipstick 100 /ul (Negative); Nitrite-Dipstick Negative (Negative); Occult Blood-Urine Negative /ul (Negative); Protein-Dipstick Negative (Negative); Urine Bilirubin Dipstick Negative (Negative); Urine Clarity Clear (Clear); Urine Urobilinogen Normal (Normal)
[2024-05-13] MEDS: Morphine 4 MG/ML Syringe IV (00:43)
[2024-05-13 00:45] VITALS: BP 123/89; PULSE 77; RESP 18; TEMP 36.2; O2SAT 98
== END 2024-05-13 00:52 | disposition home or self-care (01) ==
PROVIDERS: Emergency Provider Emergency Medicine; PCP Family Medicine; Visit Provider Emergency Medicine
DX: M54.6 Pain in thoracic spine (principal); E11.9 Type 2 diabetes mellitus without complications; I10 Essential (primary) hypertension; E78.00 Pure hypercholesterolemia, unspecified; R35.0 Frequency of micturition; N13.30 Unspecified hydronephrosis; K44.9 Diaphragmatic hernia without obstruction or gangrene; R07.9 Chest pain, unspecified; K80.20 Calculus of gallbladder without cholecystitis without obstruction
CPT/HCPCS: 71045; 74176; 80048; 81001; 84484; 85025; 85379; 93005; 96374; 99284

== ENCOUNTER → 2024-11-15 | Outpatient (CLI) | payer MEDICARE, OTHER, SELFPAY ==
[2024-11-15 13:26] LABS: Absolute Lymphocyte Count 2.94 X10^3/uL (0.83-4.51); Absolute Neutrophil Count 3.6 X10^3/uL (2.0-7.7); Basophil# 0.07 X10^3/uL; Basophil% 0.9 % (0-1); Cholesterol 182 mg/dL (<=200); Eosinophil# 0.24 X10^3/uL; Eosinophils% 3.2 % (0-5); Hematocrit 45.4 % (37-47); Hemoglobin 14.9 g/dL (12.0-15.0); High Density Lipoprotein 51 mg/dL; Low Density Lipoprotein Calc. 83 mg/dL; Lymphocyte # 2.94 X10^3/ul (0.83-4.51); Lymphocyte % 39.7 % (19-41); Mean Corp Hgb Conc 32.8 g/dL (32-36); Mean Corpuscular Hgb 28.9 pg (27.0-32.0); Mean Corpuscular Volume 88.2 fL (81-99); Mean Platelet Vol. 10.5 fl (6.2-12.0); Monocyte# 0.52 X10^3/uL; NRBC Flagged by Analyzer 0 % (0-5); Neutrophil # 3.61 X10^3/uL (2.7-7.7); Neutrophil % 48.9 % (47-70); Platelet Count 246 K/mm3 (150-450); RBC Distribution Width CV 12.6 % (11.6-14.6); RBC Distribution Width SD 41.3 fl (35.1-43.9); Red Blood Count 5.15 M/mm3 (4.2-5.4); Triglycerides 243 mg/dL; Very Low Density Lipoprotein 49 mg/dL (5-40); White Blood Count 7.4 K/mm3 (4.4-11.0); cholesterol:hdl ratio screen 3.59
[2024-11-15 15:51] LABS: ALB/GLOB Ratio 1.3 RATIO (0.9-2.4); AST(SGOT) 15 U/L (<=31); Alanine Aminotransfer ALT/SGPT 21 U/L (<=34); Albumin, Serum 4.2 g/dL (3.4-4.8); Alkaline Phosphatase 98 U/L (35-104); Anion Gap 15 (5-15); BUN 31 mg/dL (4-19); BUN/Creat Ratio 26.6 RATIO (10-20); Calcium 10.3 mg/dL (7.6-11.0); Carbon Dioxide 19.7 mmol/L (22.0-29.0); Chloride 102 mmol/L (96-108); Creatinine, Serum 1.15 mg/dL (0.70-1.20); EST Glomerular Filtration Rate 51 (>60); Globulin 3.1 g/dL (2.2-4.2); Glucose 217 mg/dL (70-99); Potassium 4.2 mmol/L (3.3-5.1); Protein, Total 7.3 g/dL (5.9-8.4); Sodium Level 136 mmol/L (133-145); Total Bilirubin 0.64 mg/dL (0.00-1.30)
[2024-11-16 12:08] LABS: C-Peptide 7.2 ng/mL (1.1-4.4); Insulin Level 16.9 uIU/mL (2.6-24.9)
== END | disposition home or self-care (01) ==
LOC: BFHLAB 10:33
PROVIDERS: PCP Family Medicine; Referring Provider Family Medicine; Visit Provider Family Medicine
DX: E11.22 Type 2 diabetes mellitus with diabetic chronic kidney disease (principal); N18.31 Chronic kidney disease, stage 3a; I12.9 Hypertensive chronic kidney disease with stage 1 through stage 4 chronic kidney disease, or unspecified chronic kidney disease; E78.5 Hyperlipidemia, unspecified
CPT/HCPCS: 36415; 80053; 80061; 83525; 84681; 85025

== ENCOUNTER → 2024-11-17 | Outpatient (CLI) | payer MEDICARE, OTHER, SELFPAY ==
[2024-11-17 15:49] LABS: Microalbumin,Random Urine < 12.0 mg/L (NO RANGE EST.); Microalbumin:Creatinine Ratio UNABLE TO CALCULATE mg/g CRE
== END | disposition home or self-care (01) ==
PROVIDERS: PCP Family Medicine; Visit Provider Family Medicine
DX: E11.22 Type 2 diabetes mellitus with diabetic chronic kidney disease (principal); N18.31 Chronic kidney disease, stage 3a; E78.5 Hyperlipidemia, unspecified; I12.9 Hypertensive chronic kidney disease with stage 1 through stage 4 chronic kidney disease, or unspecified chronic kidney disease
CPT/HCPCS: 82043; 82570

== ENCOUNTER → 2025-03-14 | Outpatient (CLI) | payer MEDICARE, OTHER, SELFPAY ==
--- NOTE | 2025-03-14 12:03 | BI_ITS ---
EXAM: SCRN MAMM (CAD)W/BOY BILAT DATE: 03/14/2025 CLINICAL HISTORY: F, Age 69 y/o , SCREENING TECHNIQUE: SCRN MAMM (CAD)W/BOY BILAT COMPARISON: Prior exam(s) dated 02/20/2024, 01/17/2023, 09/04/2021. FINDINGS: TISSUE DENSITY: There are scattered areas of fibroglandular density. Bilateral Breast Mammographic Findings: No significant masses, calcifications or other abnormalities are identified. BI/SCRN MAMM (CAD)W/BOY BILAT IMPRESSION: There is no mammographic evidence of malignancy. OVERALL FINAL ASSESSMENT BI-RADS 1: NEGATIVE. RECOMMEND ANNUAL MAMMOGRAPHIC SCREENING. RECOMMENDATION: Routine annual follow-up in 1 Year A letter with findings and recommendations will be mailed to the patient. Reading Location: [id number]
== END | disposition home or self-care (01) ==
LOC: OPBI 12:02
PROVIDERS: PCP Family Medicine; Referring Provider Family Medicine; Visit Provider Family Medicine
DX: Z12.31 Encounter for screening mammogram for malignant neoplasm of breast (principal)
CPT/HCPCS: 77063; 77067

== ENCOUNTER 2025-04-08 11:16 | Emergency (ER) | payer MEDICARE, OTHER, SELFPAY ==
[2025-04-08 11:17] VITALS: BP 140/90; PULSE 103; RESP 16; TEMP 36.6; O2SAT 98; BMI 27.6
--- NOTE | 2025-04-08 12:59 | EDS_ITS ---
HPI HPI - Female History of Present Illness Chief Complaint: Complaint Informant: patient Narrative Narrative: 69-year-old female presents with a vaginal bulge that should not be there. She states to some degree this has been going on for about 1.5 years, but it is worse lately she is not exactly sure how long. Tends to get worse whenever she walks and it is uncomfortable but not necessarily painful. She has had urinary urgency but no significant symptoms of urinary retention or incontinence although she wears a pad because she has such urgency that she is afraid she is going to leak and cannot get to a toilet soon enough. She did not have any abdominal pain, low back pain, nausea, vomiting, fevers or chills. No hematuria. [facility] Medical History Acute pharyngitis Kidney stones Wears glasses Wears partial dentures Dietary restriction PONV (postoperative nausea and vomiting) Non-smoker History of stress test HTN (hypertension) HLD (hyperlipidemia) Type II diabetes mellitus Home Medications Medication Instructions Recorded Last Taken Type allopurinol 100 mg tablet 100 mg PO QODAY 11/03/18 Unk nown History aspirin 81 mg tablet,delayed 81 mg PO DAILY@0800 11/0309/03/23 History release glimepiride 4 mg tablet 4 mg PO BID 11/03/18 Unknown History losartan 100 1 ea PO DAILY 11/03/18 Unkno wn History mg-hydrochlorothiazide 25 mg tablet multivitamin 1 ea PO DAILY 11/03/1812/25 History potassium chloride 10 mEq 10 meq PO BID 11/03/18 Unkno wn History tablet,extended release(part/cryst) simvastatin 20 mg tablet 20 mg PO DAILY 11/03/18 Unkn own History biotin 5,000 mcg sublingual tablet 5,000 mcg PO DAILY 12/01/18 Unknown History sitagliptin phosphate 50 mg tablet 50 mg PO DAILY 05/17 06/07 Unknown History (Januvia) oxycodone-acetaminophen 5 mg-325 1 tab PO Q8H PRN pain 3 days #10 05/13/24 Unknown Rx mg tablet (Percocet) tabs nitrofurantoin 100 mg PO Q12 #10 CAPSULES 0 04/08/25 Unknown Rx monohydrate/macrocrystals 100 mg capsule Allergy/AdvReac Type Severity Reaction Status Date / Time No Known Allergies Allergy Verified 04/08/25 11:20 Family History Mother Diabetes Hypertension Father CVA (cerebral vascular accident) Surgical History History of cystoscopy Hx of cystoscopy History of salpingectomy History of right breast biopsy (~02/2019) History of tonsillectomy History of left breast biopsy History of lithotripsy History of colonoscopy (~2007) Social History Smoking Status: Never smoker alcohol intake: never ROS ROS ED Constitutional Constitutional ED: Denies chills or fever(s) Eyes Eyes: Denies change in vision or diplopia ENT ENT ED: Denies rhinorrhea or sore throat Cardiovascular Cardiovascular: Denies chest pain or palpitations Respiratory/Chest Respiratory/Chest: Denies cough or dyspnea Gastrointestinal Gastrointestinal: Denies abdominal pain, diarrhea, nausea or vomiting Genitourinary Genitourinary ED: Reports as per HPI and urinary urgency; Denies dysuria or hematuria Musculoskeletal Musculoskeletal: Denies back pain or neck pain Integumentary Denies abscess or rash Neurologic Neurologic: Denies headache(s), paresthesias or weakness Psychiatric Psychiatric: Denies suicidal thoughts EXAM Physical Exam Const Vital Signs: 04/08/25 11:17 04/08/25 13:17 Temperature 97.9 F Temperature Source Oral Pulse Rate 103 H 94 Respiratory Rate 16 16 Blood Pressure 140/90 H Blood Pressure Mean 106 Pulse Ox 98 Oxygen Delivery Method Room Air Positive well nourished and well developed General Appearance ED: well developed and NAD HEENT Reports moist mucous membranes normocephalic and atraumatic Eyes PERRL and EOMs intact bilaterally Neck full ROM and supple Resp normal respiratory effort GI non-tender and non-distended Auscultation: normoactive bowel sounds Palpation: soft Narrative: On external exam, she does have a prolapsed structure in the vulva, it is just caudal to the urethra which is present, and I suspect that it is probably bladder prolapse. I can reduce it it is a little uncomfortable, but it comes right back out. There is no blood or discharge. Back/Spine no CVA tenderness General Back: other FROM Extremity normal to inspection General Extremety ED: Negative for edema, pulses abnormal or tenderness General Extremity: Negative for edema or pulses abnormal Neuro oriented x3, CN's II-XII intact bilaterally and no sensory deficits noted Sensorium / Orientation: awake and alert Motor Exam: strength 5/5 throughout Skin no rashes or lesions noted and no wounds MDM MDM MDM Narrative Medical decision making narrative: As I discussed with the patient I believe this is probably a cystocele and she should see a urogynecologist or urologist, she states she is already established with Dr. Hernández, however she is not reachable at this time or on-call. I advised the patient to follow-up as an outpatient. In the meantime we checked a urinalysis given her urgency. It shows indicators of infection. Given this and going to send a culture and put her on Macrobid since she does not have any symptoms of an upper infection, and have her follow-up as above. Lab Data Attestation: I reviewed the patient's lab results. Labs: Laboratory Results - last 24 hr 04/08/25 13:35 Urine Color Yellow Urine Clarity Turbid Urine pH 6.0 Ur Specific [place] 1.015 Urine Protein 30 H Urine Glucose (UA) 1000 H Urine Ketones Negative Urine Occult Blood 250 H Urine Nitrite Positive H Urine Bilirubin Negative Urine Urobilinogen Normal Ur Leukocyte Esterase 500 H Urine RBC 0 SEEN Urine WBC >100 SEEN Ur Squamous Epith Cells 0 SEEN Urine Bacteria 1+ Urine Mucus 0 SEEN Discharge Plan Triage Chief Complaint: Complaint ED Provider: Edward Arellano Dx/Rx/DC Orders Clinical Impression: Bladder prolapse, female, acquired, Acute lower UTI Instructions: Pelvic Organ Prolapse, Pelvic Prolapse Cystocele Surg Prescriptions: New nitrofurantoin monohyd/m-cryst 100 mg capsule 100 mg PO Q12 Qty: 10 0RF No Action biotin 5,000 mcg tablet, sublingual 5,000 mcg PO DAILY multivitamin 1 EACH tablet 1 ea PO DAILY allopurinol 100 MG tablet 100 mg PO QODAY aspirin 81 MG tablet 81 mg PO DAILY@0800 losartan-hydrochlorothiazide 1 EACH tablet 1 ea PO DAILY simvastatin 20 MG tablet 20 mg PO DAILY glimepiride 4 MG tablet 4 mg PO BID potassium chloride 10 MEQ tablet 10 meq PO BID Januvia 50 mg tablet 50 mg PO DAILY oxycodone-acetaminophen [Percocet] 5-325 mg tablet 1 tab PO Q8H PRN (Reason: pain) 3 Days Qty: 10 0RF Primary Care Provider: Smita Monroe Referrals: Carly Hernández MD [Med Staff - Active Staff] - As soon as possible Print Language: Hong Konger Disposition Disposition: Home, Self Care
[2025-04-08 13:17] VITALS: PULSE 94; RESP 16
[2025-04-08 13:42] LABS: Mucous, Urine 0 SEEN /hpf (<or=2+); Red Blood Cells-Urine 0 SEEN /hpf (0-5); Squamous Epithelial Cells - UA 0 SEEN /hpf (5-10)
[2025-04-08 13:46] LABS: Color, Urine Yellow (Yellow); Glucose, Dipstick 1000 mg/dl (Normal); Ketone-Dipstick Negative (Negative); Leukocyte Esterase-Dipstick 500 /ul (Negative); Nitrite-Dipstick Positive (Negative); Occult Blood-Urine 250 /ul (Negative); Protein-Dipstick 30 mg/dl (Negative); Specific Gravity, Urine 1.015 (1.002-1.030); Urine Bilirubin Dipstick Negative (Negative)
[2025-04-08 14:22] VITALS: BP 140/90; PULSE 94; RESP 16; TEMP 36.6; O2SAT 98
== END 2025-04-08 14:23 | disposition home or self-care (01) ==
PROVIDERS: Emergency Provider Emergency Medicine; PCP Family Medicine; Visit Provider Emergency Medicine
DX: N81.10 Cystocele, unspecified (principal); E11.9 Type 2 diabetes mellitus without complications; N39.0 Urinary tract infection, site not specified; I10 Essential (primary) hypertension; E78.5 Hyperlipidemia, unspecified
CPT/HCPCS: 81001; 87077; 87086; 87088; 87186; 99282

== ENCOUNTER → 2025-05-10 | Outpatient (CLI) | payer MEDICARE, OTHER, SELFPAY ==
--- NOTE | 2025-05-10 11:37 | RAD_ITS ---
PROCEDURE: ABDOMEN SINGLE VIEW 05/10/2025 REASON FOR EXAM: LEFT KIDNEY STONE TECHNIQUE: ABDOMEN SINGLE VIEW COMPARISON: None. FINDINGS: There is a nonobstructive bowel gas pattern. There are 2 calcific densities projected in the area of the left renal pelvis measuring 7 mm in diameter in conglomerate. There are no other calcifications project over either renal outline or along the path of either ureter. There are no significant bony abnormalities. RAD/Abdomen Single View IMPRESSION: Possible stones in the left renal pelvis. Reading Location: [id number]
== END | disposition home or self-care (01) ==
PROVIDERS: PCP Family Medicine; Referring Provider Urology; Visit Provider Urology
DX: N20.0 Calculus of kidney (principal)
CPT/HCPCS: 74018

== ENCOUNTER → 2025-06-07 | Outpatient (CLI) | payer MEDICARE, OTHER, SELFPAY ==
--- NOTE | 2025-06-07 17:55 | CT_ITS ---
PROCEDURE: ABDOMEN/PELVIS WITHOUT CONT 06/07/2025 REASON FOR EXAM: LEFT KIDNEY STONES TECHNIQUE: Procedure Code: [id number] Modality: CT Procedure: ABDOMEN/PELVIS WITHOUT CONT Noncontrast technique limits evaluation of the abdominal and pelvic viscera. Coronal and Sagittal reconstruction series were provided. One or more dose reduction techniques were used (e.g., Automated exposure control, adjustment of the mA and/or kV according to patient size, use of iterative reconstruction technique). RADIATION DOSE SUMMARY: CTDlvol: 9 mGy DLP: 474 mGycm COMPARISON: 05/13/2024. FINDINGS: Lung bases clear Peripheral soft tissues unremarkable Degenerative changes of the spine Moderate atherosclerosis Normal caliber abdominal aorta No suspicious lymphadenopathy Liver unremarkable Cholelithiasis without surrounding inflammatory changes Pancreas, spleen, and adrenal glands unremarkable No right kidney calculi or hydroureteronephrosis Severe left pelviectasis with mild to moderate caliectasis Moderate left ureterectasis without visualized obstructing calculus Small nonobstructive calculus measuring 3 mm within the dependent portion of the left renal pelvis No additional left kidney calculi No urinary bladder calculi Progression of left kidney pelviectasis compared to prior CT Normal caliber large and small bowel without surrounding inflammatory changes CT/Abdomen/Pelvis without Cont IMPRESSION: Severe left pelviectasis with moderate ureterectasis, progressed compared to pr ior CT No visualized obstructing calculus Small nonobstructive 3 mm calculus within the dependent left renal pelvis Cholelithiasis without evidence of acute cholecystitis Reading Location: [id number]
== END | disposition home or self-care (01) ==
LOC: CT 17:43
PROVIDERS: PCP Family Medicine; Referring Provider Urology; Visit Provider Urology
DX: N20.0 Calculus of kidney (principal)
CPT/HCPCS: 74176

== ENCOUNTER → 2025-07-20 | Outpatient (CLI) | payer MEDICARE, OTHER, SELFPAY ==
--- NOTE | 2025-07-20 12:18 | US_ITS ---
PROCEDURE: KIDNEY AND BLADDER 07/20/2025 REASON FOR EXAM: HYDRONEPHROSIS, PROLAPSE TECHNIQUE: Procedure Code: USKI Modality: US Procedure: KIDNEY AND BLADDER COMPARISON: Prior CT scan dated June 07, 2025. FINDINGS: Kidneys: Normal renal sizes, parenchymal thicknesses, and echotextures. [place]: No evidence of hydronephrosis. Cysts or Masses: No cysts or large solid renal masses. Other: Pessary is noted within the vaginal canal. RIGHT Kidney Size: 10 cm x 4.7 cm x 4.6 cm Cortical Thickness (if discernible): 15 mm (>6mm is normal) LEFT Kidney Size: 11.8 cm x 4.8 cm x 4.8 cm Cortical Thickness (if discernible): 18 mm (>6mm is normal) Left extrarenal pelvis. US/Kidney and Bladder IMPRESSION: No acute abnormality is seen. Reading Location: [id number]
== END | disposition home or self-care (01) ==
LOC: OPUS 12:17
PROVIDERS: PCP Family Medicine; Referring Provider Urology; Visit Provider Urology
DX: N13.30 Unspecified hydronephrosis (principal)
CPT/HCPCS: 76770